=== PATIENT | female | born 1990 | race Caucasian/White ===

== ENCOUNTER 2018-01-25 22:16 | Emergency (ER) | payer MEDICARE, MEDICAID, SELFPAY ==
[2018-01-25 22:20] VITALS: BP 125/68; PULSE 104; RESP 18; TEMP 36.7; O2SAT 99; BMI 39.3
--- NOTE | 2018-01-25 22:27 | ED.LOWEXIN ---
HPI - Extremity Injury (Lower) General Chief Complaint: Extremity Injury, Lower Stated Complaint: LEFT KNEE PAIN NOT ABLE TO MOVE WELL Time Seen by Provider: 01/25/18 22:27 Source: patient Mode of arrival: ambulatory Limitations: no limitations History of Present Illness HPI Narrative: 27-year-old female here for evaluation of left posterior knee pain. No specific trauma. She states that is been worsening over the past 3 days. No chest pain or shortness of breath. She does state that she thinks it may be a little bit more swollen. She states that it hurts worse when she is sitting with her knees bent then strains her knees. Is able to walk. Related Data Home Medications Medication Instructions Recorded Confirmed aripiprazole [Abilify] 15 mg #0 04/21/16 01/08/18 Vitamin D3 Complete 01/25/18 ibuprofen [IBU] 600 mg PO PRN PRN 01/25/18 01/25/18 Previous Rx's Medication Instructions Recorded olanzapine [Zyprexa] 5 mg PO HS #1 tab 06/12/17 aripiprazole 5 mg tablet 5 mg PO DAILY #30 tab 01/08/18 olanzapine 5 mg disintegrating 5 mg PO DAILY #30 tab 01/08/18 tablet prazosin 1 mg capsule 1 mg PO BEDTIME #30 cap 01/08/18 Allergies Allergy/AdvReac Type Severity Reaction Status Date / Time Penicillins [PENICILLINS] Allergy Unknown THROAT Verified 01/25/18 22:20 SWELLING - HIVES amoxicillin Allergy Swelling Verified 01/25/18 22:20 of Lip/Tongue/Throat Review of Systems Constitutional Denies fever(s) Cardiovascular Denies chest pain and Denies dyspnea Respiratory Denies dyspnea Gastrointestinal Gastrointestinal: Denies abdominal pain Musculoskeletal Comments: Left knee pain Integumentary/Breasts Denies lesions and Denies rash Neurologic Comments: No numbness and tingling left lower extremity Hematologic/Lymphatic Denies easy bleeding and Denies easy bruising [facility] Medical History Bipolar disorder (Acute) Surgical History History of third molar tooth extraction Status post delivery (02/04/10) Status post delivery (03/30/11) Status post laparoscopic cholecystectomy Social History Smoking Status: Never smoker Exam Initial Vital Signs Initial Vital Signs: Vital Signs Temperature 98.1 F 01/25/18 22:20 Pulse Rate 104 H 01/25/18 22:20 Respiratory Rate 18 01/25/18 22:20 Blood Pressure 125/68 01/25/18 22:20 Pulse Oximetry 99 01/25/18 22:20 Const General: cooperative, healthy appearing, comfortable, well developed and well groomed Cardio Pulses: dorsalis pedis present bilaterally Skin Lesions: no lesions Rashes: no rashes Neuro Other: Sensation intact to light touch lower extremity Extrem Other: Patient left knee unremarkable except for tenderness to palpation along the semi tendinosis muscle body and tendon. No swelling. Psych Appearance: grossly normal and well kempt Course Vital Signs - 8 hr 01/25/18 22:20 Temperature 98.1 F Pulse Rate 104 H Respiratory Rate 18 Blood Pressure 125/68 Pulse Oximetry 99 MDM - Extremity Injury (Lower) MDM Narrative Medical decision making narrative: Patient with a relatively normal exam here in the emergency department. Is neurovascularly intact. Does have tenderness to palpation along the semi tendinosis tendon. Consider DVT however her exam was not consistent with this. I do think that it is muscular. Will hold on any radiologic studies for now. Discussed treatment with the patient. Patient expressed understanding and agreement with plan. Discharge Plan Departure Patient Disposition: Home Clinical Impression: Left hamstring muscle strain Instructions: DI for Hamstring Strain, How To Perform RICE (Rest, Ice, Compress, Elevate) Activity Restrictions/Additional Instructions: Call your primary care doctor for a follow-up. Return to the emergency department for any new or worsening symptoms Prescriptions: No Action aripiprazole 5 mg tablet 5 mg PO DAILY Qty: 30 RF: 0 olanzapine 5 mg tablet,disintegrating 5 mg PO DAILY Qty: 30 RF: 0 prazosin 1 mg capsule 1 mg PO BEDTIME Qty: 30 RF: 0 aripiprazole [Abilify] 15 MG tablet 15 mg Qty: 0 RF: 0 olanzapine [Zyprexa] 5 MG tablet 5 mg PO HS Qty: 1 RF: 0 Vitamin D3 Complete RF: 0 ibuprofen [IBU] 600 mg Tablet 600 mg PO PRN PRN (Reason: pain) RF: 0
--- NOTE | 2018-01-25 22:41 | PC.NURSE ---
Patient has pain on her posterior thigh running down her leg to her toes when she straightens her leg rapidly. States there was no injury, or activity that caused this pain. She states she has new brown spots on her foot and is not sure if that is related. She states her pain feels like her tendons are going to snap. Denies prolonged periods of standing, denies injury, and denies difficulty walking.
== END 2018-01-25 22:54 | disposition home or self-care (01) ==
PROVIDERS: Emergency Provider Emergency Medicine
DX: S76.312A Strain of muscle, fascia and tendon of the posterior muscle group at thigh level, left thigh, initial encounter (principal)
CPT/HCPCS: 99282

== ENCOUNTER 2018-02-14 08:36 | Emergency (ER) | payer MEDICARE, MEDICAID, SELFPAY ==
--- NOTE | 2018-02-14 08:58 | ED.FEMALEGU ---
HPI - Female Genitourinary General Chief complaint: Urogenital-Female Stated complaint: , cramping, possbilby 6 wks along Time Seen by Provider: 02/14/18 08:51 Source: patient Mode of arrival: ambulatory Limitations: no limitations History of Present Illness HPI Narrative: 27-year-old at 6 weeks presents with pelvic cramping over the course of the day. She denies any bleeding or discharge. She has had no care on this visit. She is not dizzy nor weak or lightheaded. She denies any fever or chills. MD Complaint: pelvic pain Onset (ago): hour(s) Location: suprapubic Severity: moderate Quality: Aching Duration: constant Relieving factors: none Exacerbating factors: none Patient : Yes Related Data : 3 Para: 2 Home Medications Medication Instructions Recorded Confirmed ibuprofen [IBU] 600 mg PO PRN PRN 01/25/18 02/14/18 magnesium 1 tab PO DAILY 02/14/18 02/14/18 olanzapine 5 mg PO DAILY PRN 02/14/18 02/14/18 Allergies Allergy/AdvReac Type Severity Reaction Status Date / Time Penicillins [PENICILLINS] Allergy Unknown THROAT Verified 01/25/18 22:20 SWELLING - HIVES amoxicillin Allergy Swelling Verified 01/25/18 22:20 of Lip/Tongue/Throat Review of Systems Review of Systems All systems reviewed & are unremarkable except as noted in HPI and below Constitutional Denies chills, Denies fever(s), Denies lethargy and Denies weakness Eyes Denies change in vision, Denies eye discharge, Denies irritation and Denies loss of vision ENT Ears, Nose, Mouth, and Throat: Denies change in voice, Denies neck pain and Denies sore throat Cardiovascular Denies chest pain, Denies irregular heart rhythm, Denies lightheadedness, Denies palpitations, Denies dyspnea, Denies dyspnea on exertion and Denies orthopnea Respiratory Denies cough, Denies dyspnea, Denies dyspnea on exertion and Denies wheezing Gastrointestinal Gastrointestinal: Reports abdominal pain, Denies change in bowel habits, Denies diarrhea, Denies nausea and Denies vomiting Genitourinary Denies hematuria, Denies flank pain, Denies urinary incontinence and Denies urinary urgency Musculoskeletal Denies neck pain Integumentary/Breasts Denies pruritus, Denies erythema, Denies rash and Denies wounds Neurologic Denies confusion, Denies loss of vision and Denies weakness Psychiatric Denies anxiety, Denies confusion, Denies depression, Denies homicidal ideation and Denies suicidal ideation Endocrine Denies palpitations Hematologic/Lymphatic Denies easy bruising Allergic/Immunologic Denies wheezing [facility] Social History Smoking Status: Never smoker Exam Narrative Exam Narrative: GENERAL: This is a well-nourished, well-developed patient, in mild distress. HEAD: Atraumatic. Normocephalic. No temporal or scalp tenderness. EYES: Pupils equal round and reactive. Extraocular motions intact. No scleral icterus. No injection or drainage. ENT: Nose without bleeding, purulent drainage or septal hematoma. Throat without erythema, tonsillar hypertrophy or exudate. Uvula midline. Airway patent. NECK: Trachea midline. No JVD or lymphadenopathy. Supple, nontender, no meningeal signs. CARDIOVASCULAR: Regular rate and rhythm without murmurs, gallops, or rubs. RESPIRATORY: Clear to auscultation. Breath sounds equal bilaterally. No wheezes, rales, or rhonchi. GASTROINTESTINAL: Abdomen soft, non-tender, nondistended. No hepato-splenomegaly, or palpable masses. No guarding. EXTREMITIES: No clubbing, cyanosis, or edema. No joint tenderness, effusion, or edema noted. BACK: Nontender without deformity or crepitance. No flank tenderness. NEURO: AOx3. SKIN: No rash or erythema. Initial Vital Signs Initial Vital Signs: Vital Signs Temperature 97.9 F 02/14/18 09:14 Pulse Rate 93 H 02/14/18 09:14 Respiratory Rate 20 02/14/18 09:14 Blood Pressure 160/92 H 02/14/18 09:14 Pulse Oximetry 98 02/14/18 09:14 MDM - Female Genitourinary Medical Records Attestation: I reviewed the patient's medical records. Lab Data Result diagrams: 02/14/18 10:18 02/14/18 10:18 Lab Results 02/14/18 02/14/18 Range/Units 10:18 10:18 WBC 12.1 H (4.5-11.0) X10^3/uL RBC 4.27 (4.0-5.2) X10^6/uL Hgb 12.9 (12.0-16.0) g/dL Hct 38.1 (36-46) % MCV 89.2 (80-100) fL MCH 30.3 (26-34) PG MCHC 34.0 (30-36) % RDW 11.9 (11.6-14.8) % Plt Count 272 (150-400) X10^3/uL Neut % (Auto) 70.7 (50-75) % Lymph % (Auto) 19.7 L (25-40) % [place] % (Auto) 6.6 (3-14) % Eos % (Auto) 1.8 L (2-4) % Baso % (Auto) 1.2 (0-2) % Neut # (Auto) 8600 H (3135-4695) /uL Sodium 140 (137-145) mmol/L Potassium 4.2 (3.4-5.1) mmol/L Chloride 103 (98-107) mmol/L Carbon Dioxide 28 (22-32) mmol/L BUN 6 L (7-17) mg/dL Creatinine 0.60 (0.52-1.04) mg/dL Estimated GFR > 60.0 (>60) mL/min BUN/Creatinine Ratio 10.0 (6-22) Glucose 88 (70-100) mg/dL Calcium 9.8 (8.4-10.2) mg/dL HCG, Quant 24159 mIU/mL Point of Care Testing Test Results Positive Urine Dip Bedside Urine Glucose Negative Bedside Urine Bilirubin - Negative Bedside Urine Ketone - Negative Urine Specific [place] 1.020 Bedside Urine Occult Blood - Negative Bedside Urine pH 6.0 Bedside Urine Protein - Negative Bedside Urine Urobilinogen - Negative Bedside Urine Nitrite - Negative Bedside Urine Leukocytes - Negative Esterase Imaging Data US - abdomen: Radiologist's impression: [address] [address] Ultrasound Report Signed Patient: Belkis Coello JMR#: [id number] : 1990Acct:[id number] Age/Sex: 27 / FDate of Service: 02/14/18 Loc: ED Accession Number: [id number] Procedure: US OB <= 14 weeks fetus Ordering Provider: Matt Vasquez D.O. PROCEDURE: US OB <= 14 WEEKS FETUS INDICATIONS: at 6weeks, pelvic pain OUTSIDE/PRIOR DATING DATA: Last menstrual period (LMP): 01/05/18. LMP-based estimated date of delivery (KENYA): 10/12/18. First dating scan (date and location): [facility], 02/14/18. Estimated date of delivery (KENYA) from first dating scan: 10/09/17. TECHNIQUE: Real-time scanning was performed of the fetus and maternal pelvic organs, with image documentation. Endovaginal scanning was also performed to better visualize the fetus and maternal ovaries. COMPARISON: None. FINDINGS: Embryo: A single live intrauterine is seen. The measured heart rate is 101 beats per minute. The crown-rump length measures 0.4 cm, corresponding to an estimated gestational age of 6 weeks 1 day. It is too early for detailed anatomic assessment. By visual inspection, the amount of amniotic fluid is within normal limits. There is a crescentic hypoechoic collection seen adjacent to the gestational sac that measures 14 x 6 x 14 mm. Measurement variability in dating: +/- 4 weeks by LMP, +/- 7 days by mean sac diameter (use before 6 weeks gestation if crown-rump length not able to be measured), +/- 5 days by crown-rump length (up to 8 weeks 6 days gestation), +/- 7 days by crown-rump length (up to 13 weeks 6 days gestation). Maternal organs: There is a presumed ruptured right corpus luteum. The left ovary is unremarkable. Limited images through the kidneys demonstrate no hydronephrosis. IMPRESSION: A single live intrauterine is seen. Mild subchorionic hemorrhage can be seen. No significant discrepancy is found between the estimated gestational age based on these images and the estimated gestational age based upon the given date of the last menstrual period. Presumed right ovarian ruptured corpus luteum. Dictated by: Ryan Rivera M.D. on 02/14/2018 at 9:47 Approved by: Ryan Rivera M.D. on 02/14/2018 at 9:49 Discharge Plan Departure Patient Disposition: Home Clinical Impression: Pelvic pain affecting Discharge Date/Time: 02/14/18 11:03 Interventions: ED Discharge Assessment Last Done: 02/14/18 11:03 Instructions: DI for Abdominal Pain -- Early Activity Restrictions/Additional Instructions: *You have been diagnosed with [ pelvic pain in ] *What to do: *Take medications as directed: vitamins *Follow up with OB provider in 2-3 days, call for an appointment. Let them know you were seen in the Emergency Department and that we ask that you be seen in follow up *Return to ER if you should have any new, worsening or concerning symptoms, such as [ increasing pain, fever over 101 F, bleeding or other bothersome symptoms] Prescriptions: No Action ibuprofen [IBU] 600 mg Tablet 600 mg PO PRN PRN (Reason: pain) RF: 0 magnesium 1 tab PO DAILY RF: 0 olanzapine 5 mg tablet,disintegrating 5 mg PO DAILY PRN (Reason: Anxiety) RF: 0 Referrals: Tiesha Colby MD [Physician] -
[2018-02-14 09:14] VITALS: BP 160/92; PULSE 93; RESP 20; TEMP 36.6; O2SAT 98
--- NOTE | 2018-02-14 09:30 | DI.US.S_ITS ---
PROCEDURE: US OB <= 14 WEEKS FETUS INDICATIONS: at 6weeks, pelvic pain OUTSIDE/PRIOR DATING DATA: Last menstrual period (LMP): 01/05/18. LMP-based estimated date of delivery (KENYA): 10/12/18. First dating scan (date and location): [facility], 02/14/18. Estimated date of delivery (KENYA) from first dating scan: 10/09/17. TECHNIQUE: Real-time scanning was performed of the fetus and maternal pelvic organs, with image documentation. Endovaginal scanning was also performed to better visualize the fetus and maternal ovaries. COMPARISON: None. FINDINGS: Embryo: A single live intrauterine is seen. The measured heart rate is 101 beats per minute. The crown-rump length measures 0.4 cm, corresponding to an estimated gestational age of 6 weeks 1 day. It is too early for detailed anatomic assessment. By visual inspection, the amount of amniotic fluid is within normal limits. There is a crescentic hypoechoic collection seen adjacent to the gestational sac that measures 14 x 6 x 14 mm. Measurement variability in dating: +/- 4 weeks by LMP, +/- 7 days by mean sac diameter (use before 6 weeks gestation if crown-rump length not able to be measured), +/- 5 days by crown-rump length (up to 8 weeks 6 days gestation), +/- 7 days by crown-rump length (up to 13 weeks 6 days gestation). Maternal organs: There is a presumed ruptured right corpus luteum. The left ovary is unremarkable. Limited images through the kidneys demonstrate no hydronephrosis. IMPRESSION: A single live intrauterine is seen. Mild subchorionic hemorrhage can be seen. No significant discrepancy is found between the estimated gestational age based on these images and the estimated gestational age based upon the given date of the last menstrual period. Presumed right ovarian ruptured corpus luteum. Dictated by: Ryan Rivera M.D. on 02/14/2018 at 9:47 Approved by: Ryan Rivera M.D. on 02/14/2018 at 9:49
[2018-02-14 10:24] LABS: Add Manual Diff / Slide Review NO; Basophils Percent Auto 1.2 % (0-2); Eosinophils Percent Auto 1.8 % (2-4); Hematocrit 38.1 % (36-46); Hemoglobin 12.9 g/dL (12.0-16.0); Lymphocytes Percent Auto 19.7 % (25-40); Mean Corpuscular Hemoglobin 30.3 PG (26-34); Mean Corpuscular Volume 89.2 fL (80-100); Monocytes Percent Auto 6.6 % (3-14); Neutrophils Absolute Auto 8600 /uL (3000-5900); Neutrophils Percent Auto 70.7 % (50-75); Platelet Count 272 X10^3/uL (150-400); Red Blood Cell Count 4.27 X10^6/uL (4.0-5.2); Red Cell Distribution Width 11.9 % (11.6-14.8); White Blood Cell Count 12.1 X10^3/uL (4.5-11.0)
[2018-02-14 10:32] VITALS: BP 124/68; PULSE 80; RESP 16; O2SAT 100
[2018-02-14 10:35] LABS: Blood Urea Nitrogen 6 mg/dL (7-17); Calcium 9.8 mg/dL (8.4-10.2); Carbon Dioxide 28 mmol/L (22-32); Chloride 103 mmol/L (98-107); Estimated Glomerular Filt Rate > 60.0 mL/min (>60); Glucose 88 mg/dL (70-100); HEMOLYSIS < 15 (0-50); Potassium 4.2 mmol/L (3.4-5.1); Sodium 140 mmol/L (137-145)
[2018-02-14 11:17] LABS: HCG Quantitative /Beta subunit 43147 mIU/mL
--- NOTE | 2018-02-14 20:03 | ED_ITS ---
HPI - Female Genitourinary General Chief complaint: Urogenital-Female Stated complaint: , cramping, possbilby 6 wks along Time Seen by Provider: 02/14/18 08:51 Source: patient Mode of arrival: ambulatory Limitations: no limitations History of Present Illness HPI Narrative: 27-year-old at 6 weeks presents with pelvic cramping over the course of the day. She denies any bleeding or discharge. She has had no care on this visit. She is not dizzy nor weak or lightheaded. She denies any fever or chills. MD Complaint: pelvic pain Onset (ago): hour(s) Location: suprapubic Severity: moderate Quality: Aching Duration: constant Relieving factors: none Exacerbating factors: none Patient : Yes Related Data : 3 Para: 2 Home Medications Medication Instructions Recorded Confirmed ibuprofen [IBU] 600 mg PO PRN PRN 01/25/18 02/14/18 magnesium 1 tab PO DAILY 02/14/18 02/14/18 olanzapine 5 mg PO DAILY PRN 02/14/18 02/14/18 Allergies Allergy/AdvReac Type Severity Reaction Status Date / Time Penicillins [PENICILLINS] Allergy Unknown THROAT Verified 01/25/18 22:20 SWELLING - HIVES amoxicillin Allergy Swelling Verified 01/25/18 22:20 of Lip/Tongue/Throat Review of Systems Review of Systems All systems reviewed & are unremarkable except as noted in HPI and below Constitutional Denies chills, Denies fever(s), Denies lethargy and Denies weakness Eyes Denies change in vision, Denies eye discharge, Denies irritation and Denies loss of vision ENT Ears, Nose, Mouth, and Throat: Denies change in voice, Denies neck pain and Denies sore throat Cardiovascular Denies chest pain, Denies irregular heart rhythm, Denies lightheadedness, Denies palpitations, Denies dyspnea, Denies dyspnea on exertion and Denies orthopnea Respiratory Denies cough, Denies dyspnea, Denies dyspnea on exertion and Denies wheezing Gastrointestinal Gastrointestinal: Reports abdominal pain, Denies change in bowel habits, Denies diarrhea, Denies nausea and Denies vomiting Genitourinary Denies hematuria, Denies flank pain, Denies urinary incontinence and Denies urinary urgency Musculoskeletal Denies neck pain Integumentary/Breasts Denies pruritus, Denies erythema, Denies rash and Denies wounds Neurologic Denies confusion, Denies loss of vision and Denies weakness Psychiatric Denies anxiety, Denies confusion, Denies depression, Denies homicidal ideation and Denies suicidal ideation Endocrine Denies palpitations Hematologic/Lymphatic Denies easy bruising Allergic/Immunologic Denies wheezing [facility] Social History Smoking Status: Never smoker Exam Narrative Exam Narrative: GENERAL: This is a well-nourished, well-developed patient, in mild distress. HEAD: Atraumatic. Normocephalic. No temporal or scalp tenderness. EYES: Pupils equal round and reactive. Extraocular motions intact. No scleral icterus. No injection or drainage. ENT: Nose without bleeding, purulent drainage or septal hematoma. Throat without erythema, tonsillar hypertrophy or exudate. Uvula midline. Airway patent. NECK: Trachea midline. No JVD or lymphadenopathy. Supple, nontender, no meningeal signs. CARDIOVASCULAR: Regular rate and rhythm without murmurs, gallops, or rubs. RESPIRATORY: Clear to auscultation. Breath sounds equal bilaterally. No wheezes , rales, or rhonchi. GASTROINTESTINAL: Abdomen soft, non-tender, nondistended. No hepato-splenomegaly , or palpable masses. No guarding. EXTREMITIES: No clubbing, cyanosis, or edema. No joint tenderness, effusion, or edema noted. BACK: Nontender without deformity or crepitance. No flank tenderness. NEURO: AOx3. SKIN: No rash or erythema. Initial Vital Signs Initial Vital Signs: Vital Signs Temperature 97.9 F 02/14/18 09:14 Pulse Rate 93 H 02/14/18 09:14 Respiratory Rate 20 02/14/18 09:14 Blood Pressure 160/92 H 02/14/18 09:14 Pulse Oximetry 98 02/14/18 09:14 MDM - Female Genitourinary Medical Records Attestation: I reviewed the patient's medical records. Lab Data Result diagrams: 02/14/18 10:18 02/14/18 10:18 Lab Results 02/14/18 02/14/18 Range/Units 10:18 10:18 WBC 12.1 H (4.5-11.0) X10^3/uL RBC 4.27 (4.0-5.2) X10^6/uL Hgb 12.9 (12.0-16.0) g/dL Hct 38.1 (36-46) % MCV 89.2 (80-100) fL MCH 30.3 (26-34) PG MCHC 34.0 (30-36) % RDW 11.9 (11.6-14.8) % Plt Count 272 (150-400) X10^3/uL Neut % (Auto) 70.7 (50-75) % Lymph % (Auto) 19.7 L (25-40) % [place] % (Auto) 6.6 (3-14) % Eos % (Auto) 1.8 L (2-4) % Baso % (Auto) 1.2 (0-2) % Neut # (Auto) 8600 H (1571-2121) /uL Sodium 140 (137-145) mmol/L Potassium 4.2 (3.4-5.1) mmol/L Chloride 103 (98-107) mmol/L Carbon Dioxide 28 (22-32) mmol/L BUN 6 L (7-17) mg/dL Creatinine 0.60 (0.52-1.04) mg/dL Estimated GFR > 60.0 (>60) mL/min BUN/Creatinine Ratio 10.0 (6-22) Glucose 88 (70-100) mg/dL Calcium 9.8 (8.4-10.2) mg/dL HCG, Quant 31603 mIU/mL Point of Care Testing Test Results Positive Urine Dip Bedside Urine Glucose Negative Bedside Urine Bilirubin - Negative Bedside Urine Ketone - Negative Urine Specific [place] 1.020 Bedside Urine Occult Blood - Negative Bedside Urine pH 6.0 Bedside Urine Protein - Negative Bedside Urine Urobilinogen - Negative Bedside Urine Nitrite - Negative Bedside Urine Leukocytes - Negative Esterase Imaging Data US - abdomen: Radiologist's impression: [address] [address] Ultrasound Report Signed Patient: Belkis Coello JMR#: [id number] : 1990Acct:[id number] Age/Sex: 27 / FDate of Service: 02/14/18 Loc: ED Accession Number: [id number] Procedure: US OB <= 14 weeks fetus Ordering Provider: Matt Vasquez D.O. PROCEDURE: US OB <= 14 WEEKS FETUS INDICATIONS: at 6weeks, pelvic pain OUTSIDE/PRIOR DATING DATA: Last menstrual period (LMP): 01/05/18. LMP-based estimated date of delivery (KENYA): 10/12/18. First dating scan (date and location): [facility], 02/14/18. Estimated date of delivery (KENYA) from first dating scan: 10/09/17. TECHNIQUE: Real-time scanning was performed of the fetus and maternal pelvic organs, with image documentation. Endovaginal scanning was also performed to better visualize the fetus and maternal ovaries. COMPARISON: None. FINDINGS: Embryo: A single live intrauterine is seen. The measured heart rate is 101 beats per minute. The crown-rump length measures 0.4 cm, corresponding to an estimated gestational age of 6 weeks 1 day. It is too early for detailed anatomic assessment. By visual inspection, the amount of amniotic fluid is within normal limits. There is a crescentic hypoechoic collection seen adjacent to the gestational sac that measures 14 x 6 x 14 mm. Measurement variability in dating: +/- 4 weeks by LMP, +/- 7 days by mean sac diameter (use before 6 weeks gestation if crown-rump length not able to be measured), +/ - 5 days by crown-rump length (up to 8 weeks 6 days gestation), +/- 7 days by crown-rump length (up to 13 weeks 6 days gestation). Maternal organs: There is a presumed ruptured right corpus luteum. The left ovary is unremarkable. Limited images through the kidneys demonstrate no hydronephrosis. IMPRESSION: A single live intrauterine is seen. Mild subchorionic hemorrhage can be seen. No significant discrepancy is found between the estimated gestational age based on these images and the estimated gestational age based upon the given date of the last menstrual period. Presumed right ovarian ruptured corpus luteum. Dictated by: Ryan Rivera M.D. on 02/14/2018 at 9:47 Approved by: Ryan Rivera M.D. on 02/14/2018 at 9:49 Discharge Plan Departure Patient Disposition: Home Clinical Impression: Pelvic pain affecting Discharge Date/Time: 02/14/18 11:03 Interventions: ED Discharge Assessment Last Done: 02/14/18 11:03 Instructions: DI for Abdominal Pain -- Early Activity Restrictions/Additional Instructions: *You have been diagnosed with [ pelvic pain in ] *What to do: *Take medications as directed: vitamins *Follow up with OB provider in 2-3 days, call for an appointment. Let them know you were seen in the Emergency Department and that we ask that you be seen in follow up *Return to ER if you should have any new, worsening or concerning symptoms , such as [ increasing pain, fever over 101 F, bleeding or other bothersome symptoms] Prescriptions: No Action ibuprofen [IBU] 600 mg Tablet 600 mg PO PRN PRN (Reason: pain) RF: 0 magnesium 1 tab PO DAILY RF: 0 olanzapine 5 mg tablet,disintegrating 5 mg PO DAILY PRN (Reason: Anxiety) RF: 0 Referrals: Tiesha Colby MD [Physician] -
== END 2018-02-14 11:03 | disposition home or self-care (01) ==
PROVIDERS: Emergency Provider Emergency Medicine
DX: O26.891 Other specified pregnancy related conditions, first trimester (principal); R10.2 Pelvic and perineal pain; Z3A.01 Less than 8 weeks gestation of pregnancy
CPT/HCPCS: 36415; 76801; 76817; 80048; 81003; 81025; 84702; 85025; 99282; 99284

== ENCOUNTER → 2018-03-15 13:33 | Outpatient (CLI) | payer MEDICARE, MEDICAID, SELFPAY ==
[2018-03-15 14:10] LABS: Appearance Urine UA CLEAR; Bilirubin Urine UA NEGATIVE (NEGATIVE); Color Urine UA YELLOW; Glucose Urine UA NEGATIVE (Normal); Ketones Urine UA TRACE (NEGATIVE); Leukocyte Esterase Urine UA NEGATIVE (NEGATIVE); Nitrite Urine UA NEGATIVE (Negative); Occult Blood Urine UA TRACE-INTACT (Negative); Protein Urine UA TRACE (Negative); Specific Gravity Urine UA >=1.030 (1.000-1.035); Urobilinogen Urine UA 0.2 E.U./dL (0.2)
[2018-03-15 14:17] LABS: Urine Amphetamines Negative (Negative); Urine Barbiturates Negative (Negative); Urine Benzodiazepines Negative (Negative); Urine Cocaine Negative (Negative); Urine MDMA Negative (Negative); Urine Methadone Negative (Negative); Urine Methamphetamines Negative (Negative); Urine Morphine/Opi cutoff 2000 Negative (Negative); Urine Oxycodone Negative (Negative); Urine Phencyclidine Negative (Negative); Urine Tetrahydrocannabinol Positive (Negative); Urine Tricyclic Antidepressant Negative (Negative)
[2018-03-15 14:17] LABS: Add Manual Diff / Slide Review NO; Basophils Percent Auto 0.6 % (0-2); Eosinophils Percent Auto 0.8 % (2-4); Hematocrit 34.7 % (36-46); Lymphocytes Percent Auto 16.4 % (25-40); Mean Corpuscular HGB Conc 34.5 % (30-36); Mean Corpuscular Hemoglobin 30.3 PG (26-34); Mean Corpuscular Volume 87.8 fL (80-100); Monocytes Percent Auto 6.1 % (3-14); Neutrophils Absolute Auto 9300 /uL (3000-5900); Neutrophils Percent Auto 76.1 % (50-75); Platelet Count 332 X10^3/uL (150-400); Red Blood Cell Count 3.95 X10^6/uL (4.0-5.2); Red Cell Distribution Width 11.9 % (11.6-14.8); White Blood Cell Count 12.2 X10^3/uL (4.5-11.0)
[2018-03-15 15:43] LABS: Hepatitis B Surface Antigen NEGATIVE s/c (NEGATIVE); Rubella Antibody IgG 45.8 IU/mL (>15)
[2018-03-15 15:53] LABS: HIV 1 and 2 Antibody NEGATIVE (NEGATIVE); Hep C Virus Ab w/Reflex Quant NEGATIVE s/c (NEGATIVE)
[2018-03-18 07:03] LABS: RPR Screen Nonreactive (Nonreactive)
[2018-03-20 09:59] LABS: HSV 2 IGG AB 9.25 index (< 0.90); HSV1IGG < 0.90 index (< 0.90)
== END ==
PROVIDERS: Visit Provider Obstetrics & Gynecology
DX: Z34.81 Encounter for supervision of other normal pregnancy, first trimester (principal); Z87.898 Personal history of other specified conditions
CPT/HCPCS: 36415; 80055; 80305; 81003; 85025; 86592; 86695; 86696; 86703; 86762; 86787; 86803; 86850; 86900; 86901; 87086; 87340

== ENCOUNTER 2018-04-17 21:47 | Emergency (ER) | payer MEDICARE, MEDICAID, SELFPAY ==
--- NOTE | 2018-04-17 21:54 | ED.GENADULT ---
HPI - General Adult General Chief complaint: Vaginal Bleeding Stated complaint: Vaginal Bleeding Time Seen by Provider: 04/17/18 21:51 Source: patient Mode of arrival: ambulatory Limitations: no limitations History of Present Illness HPI narrative: patient is a 28-year-old female with blood type O-positive who [facility] She states that she was instrumented at that time. She also received the Depo shot at that time. She states that since the procedure she has had vaginal bleeding. She was told that she was going to have bleeding so she did not think much of it. She states that over the past several days the bleeding has worsened to the point to where she had a by larger pads and changing multiple pads a day. Does have some lower abdominal pain. No fevers. Related Data Home Medications Medication Instructions Recorded Confirmed ibuprofen [IBU] 600 mg PO PRN PRN 01/25/18 02/14/18 magnesium 1 tab PO DAILY 02/14/18 02/14/18 olanzapine 5 mg PO DAILY PRN 02/14/18 02/14/18 acetaminophen 325 mg tablet 650 mg PO Q6H PRN 03/15/18 03/15/18 Previous Rx's Medication Instructions Recorded sertraline 25 mg tablet 25 mg PO DAILY #30 tab 03/05/18 1 tab PO DAILY #30 tab 03/15/18 vitamin,calcium,gwzavdiv-vwfm-cenhf acid tablet fluconazole 150 mg tablet 150 mg PO ONCE #1 tab 03/22/18 Allergies Allergy/AdvReac Type Severity Reaction Status Date / Time Penicillins [PENICILLINS] Allergy Unknown THROAT Verified 04/17/18 21:56 SWELLING - HIVES amoxicillin Allergy Swelling Verified 04/17/18 21:56 of Lip/Tongue/Throat Review of Systems Constitutional Denies fever(s) and Denies headache(s) ENT Ears, Nose, Mouth, and Throat: Denies headache(s) Cardiovascular Denies chest pain and Denies dyspnea Respiratory Denies dyspnea Gastrointestinal Gastrointestinal: Reports abdominal pain, Denies nausea and Denies vomiting Genitourinary Denies dysuria and Reports vaginal discharge Musculoskeletal Denies myalgias and Denies arthralgias Integumentary/Breasts Denies rash Neurologic Denies headache(s) Hematologic/Lymphatic Denies easy bleeding and Denies easy bruising [facility] Social History Smoking Status: Never smoker Exam Initial Vital Signs Initial Vital Signs: Vital Signs Temperature 98.3 F 04/17/18 21:57 Pulse Rate 110 H 04/17/18 21:57 Respiratory Rate 15 04/17/18 21:57 Blood Pressure 153/118 H 04/17/18 21:57 Pulse Oximetry 98 04/17/18 21:57 Const General: cooperative, healthy appearing, comfortable, well developed, well groomed and No acute distress Orientation: alert, awake and oriented x3 HENMT Head: normal to inspection and normocephalic Resp Effort & Inspection: normal respiratory effort Auscultation: clear to auscultation bilaterally Cardio Rate: tachycardic Rhythm: regular rhythm GI Inspection: non-distended Palpation: soft, No firm, No guarding, No rigid and tender ( Some tenderness to palpation lower abdomen) Skin Lesions: no lesions Rashes: no rashes Neuro General: alert, awake and oriented x3 Cognition: normal cognition Speech: speech normal Extrem General: normal to inspection and capillary refill normal Psych Appearance: grossly normal and well kempt Course Orders Ordered: ED Orders 04/17/18 22:01 Basic Metabolic Panel Stat Complete Blood Count AUTO DIFF Stat HCG Quantitative Stat 04/17/18 22:10 US pelvic complete Stat Medroxyprogesterone Acetate (Provera) 10 mg PO DAILY PATRICK Vital Signs - 8 hr 04/17/18 21:57 Temperature 98.3 F Pulse Rate 110 H Respiratory Rate 15 Blood Pressure 153/118 H Pulse Oximetry 98 Medical Decision Making Lab Data Lab results reviewed: Yes I reviewed the patient's lab results. Result diagrams: 04/17/18 22:01 04/17/18 22:01 Lab Results 04/17/18 04/17/18 04/17/18 Range/Units 22:01 22:01 22:01 WBC 11.6 H (4.5-11.0) X10^3/uL RBC 4.33 (4.0-5.2) X10^6/uL Hgb 12.8 (12.0-16.0) g/dL Hct 39.0 (36-46) % MCV 90.2 (80-100) fL MCH 29.6 (26-34) PG MCHC 32.8 (30-36) % RDW 12.2 (11.6-14.8) % Plt Count 296 (150-400) X10^3/uL Neut % (Auto) 70.0 (50-75) % Lymph % (Auto) 22.3 L (25-40) % [place] % (Auto) 6.6 (3-14) % Eos % (Auto) 0.4 L (2-4) % Baso % (Auto) 0.7 (0-2) % Neut # (Auto) 8100 H (3995-7674) /uL Sodium (137-145) mmol/L Potassium (3.4-5.1) mmol/L Chloride (98-107) mmol/L Carbon Dioxide (22-32) mmol/L BUN (7-17) mg/dL Creatinine (0.52-1.04) mg/dL Estimated GFR (>60) mL/min BUN/Creatinine Ratio (6-22) Glucose (70-100) mg/dL Calcium (8.4-10.2) mg/dL HCG, Quant 55.51 mIU/mL Blood Type Cancelled 04/17/18 Range/Units 22:01 WBC (4.5-11.0) X10^3/uL RBC (4.0-5.2) X10^6/uL Hgb (12.0-16.0) g/dL Hct (36-46) % MCV (80-100) fL MCH (26-34) PG MCHC (30-36) % RDW (11.6-14.8) % Plt Count (150-400) X10^3/uL Neut % (Auto) (50-75) % Lymph % (Auto) (25-40) % [place] % (Auto) (3-14) % Eos % (Auto) (2-4) % Baso % (Auto) (0-2) % Neut # (Auto) (0176-1389) /uL Sodium 141 (137-145) mmol/L Potassium 3.7 (3.4-5.1) mmol/L Chloride 106 (98-107) mmol/L Carbon Dioxide 23 (22-32) mmol/L BUN 9 (7-17) mg/dL Creatinine 0.70 (0.52-1.04) mg/dL Estimated GFR > 60.0 (>60) mL/min BUN/Creatinine Ratio 12.9 (6-22) Glucose 98 (70-100) mg/dL Calcium 9.6 (8.4-10.2) mg/dL HCG, Quant mIU/mL Blood Type Imaging Data US - abdomen: Radiologist's impression: pelvic ultrasound Abnormally thickened and heterogeneous endometrium, most of which is avascular indicating clot, but a small focus of Doppler flow was noted within the thickened endometrium, suspicious for retained products of conception MDM Narrative Medical decision making narrative: patient does not have signs of an infection Which could be concerning for endometritis. Her hemoglobin and hematocrit her the same today as from approximately 2 months ago. I suspect that the tachycardia is related to the discomfort that she is in. The ultrasound does show concerns for retained products of conception. I discussed the case with Dr. Woods who recommended giving the patient Provera and giving the patient her office phone number so that she could follow up with her tomorrow. I discussed all this with the patient. I did discuss the ultrasound results with her. She was given follow-up information and return precautions. She expressed understanding and agreement with plan. Discharge Plan Departure Patient Disposition: Home Clinical Impression: Abnormal uterine bleeding Instructions: Therapeutic : Surgical, DI for Abnormal Uterine Bleeding Activity Restrictions/Additional Instructions: I discussed your case today with Dr. Woods. She would like you to call the [facility] at [phone] tomorrow morning. Tell them that you were seen in the emergency department this evening and that your case was discussed with Dr. Woods who wanted you to call for a follow-up. If her symptoms worsen or you develop new symptoms return to the emergency department. Prescriptions: No Action sertraline [Zoloft] 25 mg tablet 25 mg PO DAILY Qty: 30 RF: 6 prenat.vits,octavia,wdk-vswd-acshy tablet 1 tab PO DAILY Qty: 30 RF: 5 fluconazole [Diflucan] 150 mg tablet 150 mg PO ONCE Qty: 1 RF: 0 acetaminophen [Tylenol] 325 mg tablet 650 mg PO Q6H PRNRF: 0 ibuprofen [IBU] 600 mg Tablet 600 mg PO PRN PRN (Reason: pain) RF: 0 magnesium 1 tab PO DAILY RF: 0 olanzapine 5 mg tablet,disintegrating 5 mg PO DAILY PRN (Reason: Anxiety) RF: 0
[2018-04-17 21:57] VITALS: BP 153/118; PULSE 110; RESP 15; TEMP 36.8; O2SAT 98; BMI 40.7
--- NOTE | 2018-04-17 22:10 | DI.US.S_ITS ---
PROCEDURE: US PELVIC COMPLETE INDICATIONS: HEAVY BLEEDING 3 WEEKS POST ELECTIVE TECHNIQUE: Real-time scanning was performed of the pelvic organs, with image documentation. Additional endovaginal scanning was necessary due to incomplete visualization of the adnexal and endometrial structures by transabdominal scanning. COMPARISON: None. FINDINGS: Transabdominal scanning: Limited scanning through the kidneys shows no hydronephrosis. No pathologic free abdominal or pelvic fluid. Endovaginal scanning: Uterus: Uterus measures 2.5 x 5.9 x 7.8 cm. Endometrial complex is thickened to 41.8 mm. Color Doppler evaluation demonstrates absence of the vascularity in the thickened endometrium, however there is a small focus of Doppler flow identified in the inferior margin of the thickened endometrium (series 1, image 14). cm. Ovaries: Adnexa is not visualized and cannot be evaluated. No gross sonographic abnormalities identified in the expected region of the adnexa. IMPRESSION: 1. Abnormal thickening and heterogeneity of the endometrium. The majority of the thickened endometrium is avascular compatible with clot, however a small focus of vascularity is noted in inferior margin of the thickened endometrium which is concerning for retained products of conception. 2. Adnexa are not visualized. Dictated by: Aline Weston MD, PhD on 04/18/2018 at 9:16 Approved by: Aline Weston MD, PhD on 04/18/2018 at 9:59
--- NOTE | 2018-04-17 22:45 | PC.NURSE ---
Addendum entered by Shivani Dunne R.N. 04/17/18 22:50: Pt report Original Note: Pt had an 3 weeks ago. About 1 week pt started bleeding increasing in amount since yesterday. States passed a large clot about the size of her hand. Reports having gone through 2 pads in the past hour.
[2018-04-17 22:53] LABS: HCG Quantitative /Beta subunit 55.51 mIU/mL
[2018-04-17 22:58] LABS: Add Manual Diff / Slide Review NO; BUN Creatinine Ratio 12.9 (6-22); Basophils Percent Auto 0.7 % (0-2); Blood Urea Nitrogen 9 mg/dL (7-17); Calcium 9.6 mg/dL (8.4-10.2); Carbon Dioxide 23 mmol/L (22-32); Chloride 106 mmol/L (98-107); Eosinophils Percent Auto 0.4 % (2-4); Estimated Glomerular Filt Rate > 60.0 mL/min (>60); Glucose 98 mg/dL (70-100); HEMOLYSIS < 15 (0-50); Hemoglobin 12.8 g/dL (12.0-16.0); Lymphocytes Percent Auto 22.3 % (25-40); Mean Corpuscular HGB Conc 32.8 % (30-36); Mean Corpuscular Hemoglobin 29.6 PG (26-34); Mean Corpuscular Volume 90.2 fL (80-100); Monocytes Percent Auto 6.6 % (3-14); Neutrophils Absolute Auto 8100 /uL (3000-5900); Platelet Count 296 X10^3/uL (150-400); Potassium 3.7 mmol/L (3.4-5.1); Red Blood Cell Count 4.33 X10^6/uL (4.0-5.2); Red Cell Distribution Width 12.2 % (11.6-14.8); Sodium 141 mmol/L (137-145); White Blood Cell Count 11.6 X10^3/uL (4.5-11.0)
--- NOTE | 2018-04-17 23:35 | PC.NURSE ---
Sent order to coordinator for meds for pt.
[2018-04-18 00:01] VITALS: BP 133/91; PULSE 95; TEMP 36.4; O2SAT 100
--- NOTE | 2018-04-18 00:02 | PC.NURSE ---
Called 2nd time for meds for pt to d/c to home
[2018-04-18] MEDS: MEDROXYPROGESTERONE ACETATE 10 MG TABLET PO (00:09)
== END 2018-04-18 00:16 | disposition home or self-care (01) ==
PROVIDERS: Emergency Provider Emergency Medicine
DX: N93.9 Abnormal uterine and vaginal bleeding, unspecified (principal)
CPT/HCPCS: 36415; 76830; 76856; 80048; 84702; 85025; 99282; 99284

== ENCOUNTER 2018-04-18 04:20 | Observation (INO) | payer MEDICARE, MEDICAID, SELFPAY ==
[2018-04-18] VITALS (12 sets, daily range): BP systolic 104–140; BP diastolic 45–89; PULSE 68–126; RESP 12–20; TEMP 36.3–37.1; O2SAT 93–100; BMI 40.6
--- NOTE | 2018-04-18 | PATH_ITS ---
[facility] Accession Number: [id number] . 01 Material submitted: . RETAINED PRODUCTS OF CONCEPTION . 02 Diagnosis: Retained Products of Conception: Partially necrotic immature placental tissue, decidual tissue and fragments of endometrium. [facility]/04/22/2018 . 02 Electronically signed: . Ruben Hernandez MD, Pathologist NPI- [id number] . 01 Gross description: . Received in formalin labeled, products of conception, are multiple fragments of red-brown spongy tissue (15.0 x 3.5 x 3.0 cm in aggregate). No tissue is identified. [facility] tissue is submitted in cassettes A1-A4. ([id number]) /[facility] . 02 Pathologist provided ICD-10: O02.1 . 02 CPT . 880075 Performed at: 01 [facility] [address] [id number] MD Jeses Singh MD Phone: [phone] Performed at: 02 [facility] [address] [place] [id number] MD Na Guzmán MD Phone: [phone]
--- NOTE | 2018-04-18 04:23 | ED_ITS ---
HPI - General Adult General Chief complaint: Vaginal Bleeding Stated complaint: large blood clots lots of bleeding post Time Seen by Provider: 04/18/18 04:21 Source: patient Mode of arrival: ambulatory Limitations: no limitations History of Present Illness HPI narrative: 28-year-old female who I evaluated here in the emergency department last evening 3 weeks after having a elective . She was having bleeding at that time. Was given 10 mg of medroxyprogesterone by mouth here in the emergency department prior to discharge. She was also given follow- up instructions for Dr. Woods who I consulted during her last stay. She returns again this morning for continued and worsening bleeding. She states that since she left the emergency department her symptoms have certainly not improved in have actually worsened. No abdominal pain but states that she has passed several very large clots. Related Data Home Medications Medication Instructions Recorded Confirmed ibuprofen [IBU] 600 mg PO PRN PRN 01/25/18 02/14/18 magnesium 1 tab PO DAILY 02/14/18 02/14/18 olanzapine 5 mg PO DAILY PRN 02/14/18 02/14/18 acetaminophen 325 mg tablet 650 mg PO Q6H PRN 03/15/18 03/15/18 medroxyprogesterone 10 mg DAILY 04/18/18 04/18/18 Previous Rx's Medication Instructions Recorded sertraline 25 mg tablet 25 mg PO DAILY #30 tab 03/05/18 1 tab PO DAILY #30 tab 03/15/18 vitamin,calcium,nbmenmso-cukp-cnjzs acid tablet fluconazole 150 mg tablet 150 mg PO ONCE #1 tab 03/22/18 Allergies Allergy/AdvReac Type Severity Reaction Status Date / Time Penicillins [PENICILLINS] Allergy Unknown THROAT Verified 04/17/18 21:56 SWELLING - HIVES amoxicillin Allergy Swelling Verified 04/17/18 21:56 of Lip/Tongue/Throat Review of Systems Cardiovascular Denies chest pain and Denies dyspnea Respiratory Denies dyspnea Gastrointestinal Gastrointestinal: Reports abdominal pain ( Abdominal pain is not worse from the visit last evening) and Reports cramping Genitourinary Denies dysuria and Reports vaginal discharge Musculoskeletal Denies myalgias and Denies arthralgias Integumentary/Breasts Denies rash Neurologic Denies behavioral changes Psychiatric Denies behavioral changes Hematologic/Lymphatic Comments: not on anticoagulation PFSH Social History Smoking Status: Never smoker Exam Initial Vital Signs Initial Vital Signs: Vital Signs Temperature 97.4 F L 04/18/18 04:27 Pulse Rate 126 H 04/18/18 04:27 Respiratory Rate 20 04/18/18 04:27 Blood Pressure 133/89 04/18/18 04:27 Pulse Oximetry 98 04/18/18 04:27 Const General: cooperative, comfortable, well developed, well groomed and No acute distress Orientation: alert, awake and oriented x3 HENMT Head: normal to inspection and normocephalic Resp Effort & Inspection: normal respiratory effort Auscultation: clear to auscultation bilaterally Cardio Rate: tachycardic Rhythm: regular rhythm Pulses: radial pulses present GI Inspection: non-distended Palpation: soft Skin Rashes: no rashes Neuro General: alert, awake and oriented x3 Extrem General: normal to inspection and capillary refill normal Psych Appearance: grossly normal and well kempt Course Orders Ordered: ED Orders 04/18/18 04:42 Hemoglobin and Hematocrit Stat Type and Screen Stat Sodium Chloride (Normal Saline 0.9%) 1,000 mls @ 125 mls/hr IV CONT PATRICK Last Admin: 04/18/18 05:01 Dose: 125 mls/hr Vital Signs - 8 hr 04/18/18 04:27 04/18/18 05:13 Temperature 97.4 F L Pulse Rate 126 H 100 H Respiratory Rate 20 18 Blood Pressure 133/89 Blood Pressure [Right Arm] 124/64 Pulse Oximetry 98 100 Medical Decision Making Lab Data Lab results reviewed: Yes I reviewed the patient's lab results. Result diagrams: 04/18/18 04:42 Lab Results 04/18/18 04/18/18 Range/Units 04:42 04:42 Hgb 12.5 (12.0-16.0) g/dL Hct 37.2 (36-46) % Blood Type O Positive Antibody Screen Negative MDM Narrative Medical decision making narrative: patient's hemoglobin and hematocrit are unchanged from the visit several hours ago. The these are also unchanged from a prior H&H several months ago. Patient is more tachycardic upon arrival. Is not hypotensive. I do not feel the need to repeat a ultrasound or chemistries. I discussed the case again with Dr. Woods who will evaluate the patient here in the emergency department. Patient was informed that Dr. Woods to come see her here in the ER. patient was evaluated by Dr. Woods. Will admit the patient for D&C. Discharge Plan Departure Patient Disposition: Admitted as Observation Clinical Impression: Vaginal bleeding
[2018-04-18 04:59] LABS: Hematocrit 37.2 % (36-46); Hemoglobin 12.5 g/dL (12.0-16.0)
[2018-04-18] MEDS: SODIUM CHLORIDE 0.9% 1,000 ML 125 ML IV (05:01)
--- NOTE | 2018-04-18 05:02 | PC.NURSE ---
I entered room after another RN began IV. Pt is diaphoretic, decreased B/P to 83/42, and Pt not talking to me much. Repositioned pt in trendellenberg position, applied ice to neck, and towel placed on forehead. Began IV fluids and BP went back up to 124/64. Pt states she is feeling a little better and responding appropriately to questions.
--- NOTE | 2018-04-18 06:41 | PM.GYNHP.1 ---
History of Present Illness Reason for admission: incomplete Narrative: Belkis Coello is a 28 year old female who had a D and C for termination at 12 weeks on March 28. She had continues episodes of gushing of bright red blood since the procedure. The bleeding became heavier with passing of clots and continuous so she presented to the emergency room. [facility] Social History Smoking Status: Never smoker Meds Home Medications Medication Instructions Recorded Confirmed Type ibuprofen [IBU] 600 mg PO PRN PRN 01/25/18 04/18/18 History olanzapine 5 mg PO DAILY PRN 02/14/18 04/18/18 History acetaminophen 325 mg tablet 650 mg PO Q6H PRN 03/15/18 04/18/18 History medroxyprogesterone 10 mg DAILY 04/18/18 04/18/18 History medroxyprogesterone [Depo-Provera] 150 mg IM 04/18/18 History Allergies Allergy/AdvReac Type Severity Reaction Status Date / Time Penicillins [PENICILLINS] Allergy Unknown THROAT Verified 04/17/18 21:56 SWELLING - HIVES amoxicillin Allergy Swelling Verified 04/17/18 21:56 of Lip/Tongue/Throat Review of Systems Review of Systems Patient complains of some intermittent cramping and left lower quadrant pain with passing of blood clots. No fevers. All systems reviewed & are unremarkable except as noted in HPI and below Exam Vital Signs (past 8 hours): - 04/18/18 04:27 04/18/18 05:13 04/18/18 06:19 Temperature 97.4 F L Pulse Rate 126 H 100 H 103 H Respiratory Rate 20 18 18 Blood Pressure 133/89 114/60 Blood Pressure [Right Arm] 124/64 Pulse Oximetry 98 100 100 Oxygen Delivery Method Room Air Narrative Exam Narrative: HEENT exam within normal limits. Lungs are clear to auscultation and percussion. Heart is regular rate and rhythm no S3-S4 or murmurs. Abdomen is soft, nontender with no palpable organomegaly. Pelvic exam was not repeated. Extremities without edema and nontender. Objective Imaging US - abdomen: Radiologist's impression: Retained products of conception on ultrasound Labs Result Diagrams: 04/18/18 04:42 Labs: Laboratory Results - last 24 hr 04/18/18 04/18/18 04:42 04:42 Hgb 12.5 Hct 37.2 Blood Type O Positive Antibody Screen Negative Assessment & Plan (1) Incomplete miscarriage with blood clot: Current visit: Yes Status: Acute Plan: Assessment/Plan Narrative: Patient was given options of waiting to see if she passes the retained products of conception, proceeding with D and C, medical therapy with methotrexate and Cytotec. Patient opted for D&C. Risks of scar tissue, damage to internal structures if perforation, infection, continued bleeding. Consent form was signed, questions answered.
[2018-04-18] MEDS: LACTATED RINGERS 1,000 ML 100 ML IV ×2 (09:19→15:09)
--- NOTE | 2018-04-18 13:19 | PC.NURSE ---
Patient maintaining NPO for procedure today, anticipated at about 13-1400. Patient up to void without difficulty, scant vaginal bleeding (no clots noted) on pad. Patient appears comfortable, without complaints. Friends and family have been in and out to visit. VSS. Awaiting pickle processor for surgery.
--- NOTE | 2018-04-18 14:38 | PC.NURSE ---
Patient picked up for surgery at this time.
--- NOTE | 2018-04-18 14:49 | CM.IDA ---
Discharge Planning/Care Management CM Discharge Assessment Start: 04/18/18 14:29 Freq: Status: Active Protocol: Document 04/18/18 14:29 ELIO (Rec: 04/18/18 14:48 ELIO [id number]) Discharge Planning Assessment Assigned Leasing Assistant Jennifer Jarrett, BAKER HELPER DPOA/Assigned Designee Name Carolina Marie, family Contact Information [phone] Advance Directives? No History Provided By Patient Prior Living Arrangements Apartment/Condo Independent with ADL's Yes Is patient alert and oriented? Yes Comment Pt requires further assessment from this BAKER HELPER. Pt off the floor for D&C surgery today. PMH includes Bipolar disorder, PTSD, anxiety and ADHD. Family Practice Visit note ( [facility]) dated 01/08/18 indicates pt does not have a PCP and has not made it into [facility] for management of her psych meds/ counseling, d/t her work schedule. Following closely. Discharge Plan Home Transportation Arrangement Likely friends or family Additional Comment Possible need for referral pending further assessment. Review Status In Process
--- NOTE | 2018-04-18 15:24 | PM.PREOP ---
Pre-operative Note Interval Note Pre-op Check: Yes History & Physical exam performed today by Physician Changes: No
[2018-04-18] MEDS: CLINDAMYCIN 900 MG/50 ML PIGGYBACK 50 MG IV (15:32)
--- NOTE | 2018-04-18 15:39 | SUR.OPER ---
Lithotomy on padded OR bed, head on pillow, arms secured on padded arm boards at <90 degrees abduction. Legs secured in padded yellow fins stirrups.
--- NOTE | 2018-04-18 16:01 | P.OP_ITS ---
Operative Date/Time/Diagnoses Date of procedure: 04/18/18 Time of procedure: 16:01 Pre-op diagnosis: retained products of conception Post-op diagnosis: same Procedure & Clinicians Procedure: Suction D&C Same procedure as scheduled: Yes Indications: Retained products of conception after 12 week termination Surgeon: Priya Woods Click Yes if Unassisted: Yes Anesthesia Type: General Operative Notes Findings: Moderate amount of retained tissue Closure Type: not applicable Specimen(s): other (Products of conception) Estimated Blood Loss (mL): 25 Blood products transfused: none Procedure in detail: Patient was brought to the operating room where she underwent general anesthesia. Pulsatile stockings were in place and functional. Warming was in place. Clindamycin was in prior to beginning of the case. A check system was reviewed with the staff in the room. She was prepped and draped in usual sterile fashion. Her bladder was drained with an in -and out catheter. A single-tooth tenaculum was placed on the anterior lip of the cervix and the cervix was dilated to 8. Hegar dilator. The uterus was sounded. The 7 suction curette was placed into the uterus and old blood and tissue removed. Sharp curette was performed. Suction curette was replaced with removal of further tissue. There was not significant bleeding at the end of the case. Patient went to recovery room in good condition. Counts of instruments and sponges were correct. Complications: none Condition: stable Disposition: same day surgery Plan for aftercare: Home when awake and stable follow-up in 2 weeks
--- NOTE | 2018-04-18 18:15 | PC.NURSE ---
1730- Discharge instruction given patient verbalizes understanding. IV dc'd. Patient stable at the time of discharge.
== END 2018-04-18 17:30 | disposition home or self-care (01) ==
LOC: ED 04:56 → AC 06:07
PROVIDERS: Admitting Provider Specialist; Emergency Provider Emergency Medicine; Visit Provider Specialist
PROC: 0UDB8ZZ Extraction of Endometrium, Via Natural or Artificial Opening Endoscopic (ICD-10-PCS; CPT 58558; principal; 2018-04-18 13:45)
DX: O03.1 Delayed or excessive hemorrhage following incomplete spontaneous abortion (principal)
CPT/HCPCS: 59812; 36591; 85014; 85018; 86850; 86900; 86901; 88305; 96360; 99283; 99284; G0378; J1100; J2405; J2704; J3010

== ENCOUNTER → 2018-10-22 12:18 | Outpatient (CLI) | payer MEDICARE, MEDICAID, SELFPAY ==
[2018-04-18 06:48] VITALS: BMI 40.6
[2018-10-22 14:14] LABS: HCG Quantitative /Beta subunit < 2.39 mIU/mL
== END ==
PROVIDERS: Visit Provider Obstetrics & Gynecology
DX: N91.2 Amenorrhea, unspecified (principal)
CPT/HCPCS: 36415; 84702

== ENCOUNTER → 2019-02-10 16:25 | Outpatient (CLI) | payer MEDICARE, MEDICAID, SELFPAY ==
[2018-04-18 06:48] VITALS: BMI 40.6
[2019-02-10 17:52] LABS: Cholesterol 149 mg/dL (140-199); HDL Cholesterol 58 mg/dL (40-60); LDL Cholesterol Calculated 81 mg/dL (<100); Triglycerides 52 mg/dL (35-150)
[2019-02-10 18:09] LABS: Vitamin D 25 Hydroxy (D3) 24.7 ng/mL (30.0-100.0)
[2019-02-10 18:10] LABS: Hemoglobin A1C% w Est Avg Glu 4.8 % (4.0-6.0)
== END ==
PROVIDERS: PCP Student in an Organized Health Care Education/Training Program; Visit Provider Student in an Organized Health Care Education/Training Program
DX: E66.01 Morbid (severe) obesity due to excess calories (principal); R73.9 Hyperglycemia, unspecified; Z13.220 Encounter for screening for lipoid disorders; E55.9 Vitamin D deficiency, unspecified
CPT/HCPCS: 36415; 80061; 82306; 83036

== ENCOUNTER → 2019-03-11 11:33 | Outpatient (CLI) | payer MEDICARE, MEDICAID, SELFPAY ==
[2018-04-18 06:48] VITALS: BMI 40.6
[2019-03-11 12:51] LABS: HCG Quantitative /Beta subunit 172.53 mIU/mL
== END ==
PROVIDERS: PCP Student in an Organized Health Care Education/Training Program; Visit Provider Obstetrics & Gynecology
DX: N91.2 Amenorrhea, unspecified (principal)
CPT/HCPCS: 36415; 84702

== ENCOUNTER → 2019-03-13 08:03 | Outpatient (CLI) | payer MEDICARE, MEDICAID, SELFPAY ==
[2018-04-18 06:48] VITALS: BMI 40.6
[2019-03-13 09:41] LABS: HCG Quantitative /Beta subunit 422.13 mIU/mL
== END ==
PROVIDERS: PCP Student in an Organized Health Care Education/Training Program; Visit Provider Obstetrics & Gynecology
DX: N91.2 Amenorrhea, unspecified (principal)
CPT/HCPCS: 36415; 84702

== ENCOUNTER → 2019-04-24 15:10 | Outpatient (CLI) | payer MEDICARE, MEDICAID, SELFPAY ==
[2018-04-18 06:48] VITALS: BMI 40.6
[2019-04-24 15:58] LABS: Add Manual Diff / Slide Review NO; Basophils Absolute Auto 100 /uL (0-100); Basophils Percent Auto 0.7 % (0-2); Eosinophils Absolute Auto 200 /uL (0-450); Eosinophils Percent Auto 1.8 % (2-4); Hematocrit 37.9 % (36-46); Hemoglobin 13.2 g/dL (12.0-16.0); Lymphocytes Absolute Auto 1900 /uL (1100-4500); Lymphocytes Percent Auto 16.7 % (25-40); Mean Corpuscular HGB Conc 34.7 % (30-36); Mean Corpuscular Hemoglobin 30.9 PG (26-34); Mean Corpuscular Volume 88.8 fL (80-100); Monocytes Absolute Auto 600 /uL (0-900); Monocytes Percent Auto 5.3 % (3-14); Neutrophils Absolute Auto 8800 /uL (1500-7000); Neutrophils Percent Auto 75.5 % (50-75); Platelet Count 326 X10^3/uL (150-400); Red Blood Cell Count 4.26 X10^6/uL (4.0-5.2); Red Cell Distribution Width 12.2 % (11.6-14.8); White Blood Cell Count 11.6 X10^3/uL (4.5-11.0)
[2019-04-24 17:42] LABS: Hepatitis B Surface Antigen NEGATIVE s/c (NEGATIVE); Rubella Antibody IgG 51.4 IU/mL (>15)
[2019-04-24 17:51] LABS: HIV 1 & 2 Ab/Ag 4th Gen Combo NEGATIVE (NEGATIVE); Hep C Virus Ab w/Reflex Quant NEGATIVE s/c (NEGATIVE)
[2019-04-27 20:01] LABS: RPR Screen Nonreactive (Nonreactive)
== END ==
PROVIDERS: PCP Student in an Organized Health Care Education/Training Program; Visit Provider Obstetrics & Gynecology
DX: Z34.81 Encounter for supervision of other normal pregnancy, first trimester (principal)
CPT/HCPCS: 36415; 80055; 86787; 86803; 86850; 86900; 86901; 87389

== ENCOUNTER → 2019-06-25 16:45 | Outpatient (CLI) | payer MEDICARE, OTHER, MEDICAID, SELFPAY ==
[2018-04-18 06:48] VITALS: BMI 40.6
[2019-06-28 21:00] LABS: AFP, Serum 37.6 ng/mL; Brief History NTD NG; Calc Gestational Age 19.6; Cigarette Smoker N; Donated Egg NO; Donor Egg Age NOT GIVEN; Estriol, Free 1.43 ng/mL; Inhibin A, Dimeric 91 pg/mL; Inhibin A, MoM 0.64; Maternal Weight 260 lbs; Number of Fetuses 1; Previous Pregnancy Down Syndro NO; hCG, MoM 1.55; hCG, Serum 23.3 IU/mL
== END ==
PROVIDERS: PCP Student in an Organized Health Care Education/Training Program; Referring Provider Specialist; Visit Provider Specialist
DX: Z34.82 Encounter for supervision of other normal pregnancy, second trimester (principal); Z3A.19 19 weeks gestation of pregnancy
CPT/HCPCS: 36415; 82105; 82677; 84702; 86336

== ENCOUNTER → 2019-06-30 07:58 | Outpatient (CLI) | payer MEDICARE, MEDICAID, SELFPAY ==
[2018-04-18 06:48] VITALS: BMI 40.6
--- NOTE | 2019-06-30 08:00 | DI.US.S_ITS ---
PROCEDURE: US OB >= 14 WEEKS FETUS INDICATIONS: ANATOMY OUTSIDE/PRIOR DATING DATA: Last menstrual period (LMP): 02/08/19. LMP-based estimated date of delivery (KENYA): 11/15/19. First dating scan (date and location): 06/30/19. Estimated date of delivery (KENYA) from first dating scan: 11/13/19. TECHNIQUE: Real-time scanning was performed of the fetus, with image documentation and biometric measurements. COMPARISON: [facility], , OB >= 14 WEEKS FETUS, 06/25/2019, 16:17. FINDINGS: General: A single living intrauterine gestation is present. Presentation: Vertex. Placenta: Placental position is posterior, without previa. Amniotic fluid index: 12.9 cm, normal range is 5-24 cm. heart rate: 141 beats per minute. Maternal cervical canal: 3.2 cm long. Normal lower limit is 2.5 cm biometrics: Biparietal diameter: 20 weeks 0 days Head circumference: 20 weeks 3 days Abdominal circumference: 21 weeks 1 day Femur length: 20 weeks 6 days Estimated gestational age from initial scan: not applicable. Composite gestational age from present scan: 20 weeks 4 days Estimated weight and percentile: 36 g; 80 percentile Measurement variability for biometric dating: +/- 7 days from 14 weeks to 15 weeks 6 days gestation, +/- 10 days from 16 weeks to 21 weeks 6 days gestation, +/- 2 weeks from 22 weeks to 27 weeks 6 days gestation, +/- 3 weeks for 28 weeks gestation or later. weight reference: 4500 g or EFW >90/95% is considered macrosomia or large for gestational age. EFW <10% is small for gestational age. EFW 5% or less is considered intra-uterine growth restriction. Anatomic survey: Neuro: Ventricles are non-dilated at less than 10 mm. Cisterna magna is normal at 3-11 mm. Cerebellum is normal in size and morphology. Nuchal skin fold: Normal at less than 6 mm between 14-21 weeks gestational age. Face: Nose and lips, facial profile are normal. Spine: No evidence for spina bifida. Heart: Suboptimally visualized. Diaphragm: Diaphragm is intact. Stomach: Left-sided stomach is present. Kidneys: No hydronephrosis. Normal is less than 5 mm in 2nd trimester, less than 7 mm in 3rd trimester. Cord: 3-vessel cord has orthotopic insertion. Bladder: Normal in size. Extremities: All 4 extremities identified. IMPRESSION: 1. Single living IUP redemonstrated and interval growth is normal. 2. heart suboptimally visualized; otherwise normal anatomy. Followup recommended. Dictated by: Christiano Alberts [facility] Interpreted: Kelly Lynn MD on 06/30/2019 at 9:28 Approved by: Kelly Lynn M.D. on 06/30/2019 at 17:11
== END ==
PROVIDERS: PCP Student in an Organized Health Care Education/Training Program; Referring Provider Specialist; Visit Provider Specialist
DX: Z34.82 Encounter for supervision of other normal pregnancy, second trimester (principal); Z3A.20 20 weeks gestation of pregnancy
CPT/HCPCS: 76811

== ENCOUNTER → 2019-07-28 11:58 | Outpatient (CLI) | payer MEDICARE, MEDICAID, SELFPAY ==
[2018-04-18 06:48] VITALS: BMI 40.6
--- NOTE | 2019-07-28 11:59 | DI.US.S_ITS ---
PROCEDURE: US OB FOLLOW UP INDICATIONS: RE-EVALUATE HEART OUTSIDE/PRIOR DATING DATA: Last menstrual period (LMP): 02/08/19. LMP-based estimated date of delivery (KENYA): 11/15/19. First dating scan (date and location): 06/30/19. Estimated date of delivery (KENYA) from first dating scan: 11/13/19. TECHNIQUE: Real-time scanning was performed of the fetus, with image documentation. Endovaginal scanning: Not performed COMPARISON: [facility], US OB >= 14 WEEKS FETUS, 06/30/2019, 8:12. [facility], US OB >= 14 WEEKS FETUS, 06/25/2019, 16:17. FINDINGS: A single living intrauterine gestation is present. Presentation: breech. Placenta: Placental position is posterior, without previa. Amniotic fluid index: 13.1 cm, normal range is 5-24 cm. heart rate: 141 beats per minute. Maternal cervical canal: 4.6 cm long. Normal lower limit is 2.5 cm. Estimated gestational age from initial scan: 24 weeks 4 days. Normal appearance of the heart. This completes the anatomic survey IMPRESSION: Single living intrauterine fetus in breech presentation. Normal appearance of the heart. Dictated by: Shravan Martell M.D. on 07/28/2019 at 16:03 Approved by: Shravan Martell M.D. on 07/28/2019 at 16:05
== END ==
PROVIDERS: PCP Student in an Organized Health Care Education/Training Program; Referring Provider Student in an Organized Health Care Education/Training Program; Visit Provider Obstetrics & Gynecology
DX: Z36.2 Encounter for other antenatal screening follow-up (principal); Z3A.24 24 weeks gestation of pregnancy
CPT/HCPCS: 76816

== ENCOUNTER → 2019-08-19 11:58 | Outpatient (CLI) | payer MEDICARE, MEDICAID, SELFPAY ==
[2019-07-29 08:35] VITALS: BMI 40.6
[2019-08-19 14:32] LABS: Hematocrit 35.8 % (36-46)
[2019-08-19 14:56] LABS: GTT (PREG) 1 Hour PP 50gm Dose 124 mg/dL (76-139)
== END ==
PROVIDERS: PCP Student in an Organized Health Care Education/Training Program; Referring Provider Specialist; Visit Provider Specialist
DX: Z34.82 Encounter for supervision of other normal pregnancy, second trimester (principal); Z3A.23 23 weeks gestation of pregnancy
CPT/HCPCS: 36415; 82950; 85014; 85018

== ENCOUNTER → 2019-10-22 11:42 | Outpatient (CLI) | payer MEDICARE, MEDICAID, SELFPAY ==
[2019-07-29 08:35] VITALS: BMI 40.6
[2019-10-23 12:33] LABS: Strep Grp B PCR NEG for Grp B Strep
== END ==
PROVIDERS: PCP Student in an Organized Health Care Education/Training Program; Visit Provider Specialist
DX: Z34.83 Encounter for supervision of other normal pregnancy, third trimester (principal); Z3A.36 36 weeks gestation of pregnancy
CPT/HCPCS: 87653

== ENCOUNTER → 2019-11-04 14:15 | Outpatient (CLI) | payer MEDICARE, MEDICAID, SELFPAY ==
[2019-07-29 08:35] VITALS: BMI 40.6
[2019-11-05 22:50] LABS: COVID19 Sendout Not Detected (Not Detect)
== END ==
PROVIDERS: PCP Student in an Organized Health Care Education/Training Program; Visit Provider Physician Assistant
DX: Z01.812 Encounter for preprocedural laboratory examination (principal)
CPT/HCPCS: 87635

== ENCOUNTER 2019-11-07 07:12 | Inpatient (IN) | payer MEDICARE, MEDICAID, SELFPAY ==
[2019-07-29 08:35] VITALS: BMI 40.6
--- NOTE | 2019-11-07 | PATH_ITS ---
[facility] Accession Number: [id number] . 01 Material submitted: . fallopian tube - SEGMENT OF FALLOPIAN TUBES BILATERAL . 02 Diagnosis: Segments of Fallopian Tubes Bilateral: Complete cross-sections of segments of fallopian tube x2. V 11/10/2019 0927 Local . 02 Electronically signed: . Ida English MD, Pathologist NPI- [id number] . 01 Gross description: . Specimen A is received in formalin, labeled with patient identification and segment bilateral fallopian tubes. It consists of two undesignated, nonfimbriated fallopian tube segments measuring 1.5 and 1.9 cm in length and 0.5 cm in diameter each. The serosae are yellow-gonzáles, smooth and dull. Sectioning reveals pinpoint patent lumina which are lined by yellow-gonzáles and grossly unremarkable mucosa. The wall thickness is 0.1 cm. The entire specimen is submitted in two cassettes. . Summary of sections: A1: Entire cross-sections of shorter fallopian tube, five pieces. A2: The entire sections of longer fallopian tube, six pieces. ([id number]) /MRV 11/09/2019 0258 Local . 02 Pathologist provided ICD-10: Z30.2 . 02 CPT . 444541 Performed at: 01 [facility] [address], [place], [place] [id number] MD Jesse Sinhg MD Phone: [phone] Performed at: 02 [facility] [place] [address] [place], [place] [id number] MD Na Guzmán MD Phone: [phone]
--- NOTE | 2019-11-07 07:45 | SUR.OPER ---
Supine on Padded OR bed, head on pillow, safety belt at thigh, arms secured on padded arm boards at <90 degrees abduction. Bump under right buttock. Legs uncrossed with pillow under knees, gel pad to heels, tape over blanket to lower legs.
[2019-11-07] MEDS: GENTAMICIN 440 MG in SODIUM CHLORIDE 0.9% 100 ML 111 ML IV (08:03)
[2019-11-07] MEDS: CLINDAMYCIN 900 MG/50 ML PIGGYBACK 50 MG IV (08:06)
[2019-11-07] MEDS: ACETAMINOPHEN IV 1,000 MG/100 ML VIAL 400 MG IV (08:25)
--- NOTE | 2019-11-07 08:37 | SUR.OPER ---
VIABLE FEMALE INFANT DELIVERED AT 0829. CORD BLOOD AND PLACENTA TO OB WITH RN.
[2019-11-07 09:10] VITALS: BP 114/51; PULSE 79; RESP 10; TEMP 36.1; O2SAT 98
[2019-11-07 09:15] VITALS: BP 104/51; PULSE 85; RESP 10; O2SAT 97
--- NOTE | 2019-11-07 09:16 | PM.OP.1 ---
Operative Date/Time/Diagnoses Date of procedure: 11/07/19 Time of procedure: 09:16 Pre-op diagnosis: 39 week gestation with prior section wish for sterilization Post-op diagnosis: same Procedure & Clinicians Procedure: Repeat low-transverse section with bilateral tubal ligation Same procedure as scheduled: Yes Indications: 2 prior sections at 39 weeks with wish for sterilization Surgeon: Priya Woods Stocking Inspector: Donny Hernandez Yes if Unassisted: No Anesthesia Type: Spinal Operative Notes Findings: The normal tubes, ovaries, uterus, adhesions of the omentum to the anterior abdominal wall, viable female weighing 7 lb 3 oz, 3250 g, with Apgars of 8 and 9 Closure Type: primary Specimen(s): other (Bilateral tubal sections) Applied: catheter (Valerio) Estimated Blood Loss (mL): 200 Blood products transfused: none Procedure in detail: The patient was brought to the operating room where she underwent a spinal for anesthesia. She was placed in a supine position with a left lateral tilt. A Valerio catheter was placed. Pulsatile stockings were placed and functional throughout the case. 900 mg of clindamycin and 440 mg of gentamicin were given IV prior to the incision. Warming was in place. The patient was prepped and draped in usual sterile fashion. A low transverse incision was made with a scalpel through the prior incision and the incision was carried down to the fascial layer which was incised transversely with scissors. The midline attachments are superiorly and inferiorly. Some bleeding was controlled Bovie. The rectus muscles were in the midline and the peritoneal incision was made with no damage to internal structures. The peritoneum was incised and superiorly and inferiorly. Bladder blade was placed and a bladder flap was developed and the bladder held away from the lower uterine segment. An incision was made in the uterus with the scalpel and the incision was extended with stretching. The head was elevated out of the abdomen and with fundal pressure the baby was delivered. The infant was bulb suctioned for clear fluid and handed off to the warmer. Cord blood was collected. The placenta delivered spontaneously with traction. The uterus was cleaned with clean laps. The uterine incision was closed in 2 layers of 0 chromic suture the first a running locking layer the second an imbricating layer. The bladder peritoneum was repaired with 2-0 Vicryl suture. The gutters were cleaned of any remaining fluids and ovaries and tubes were observed to be normal. A segment of the right fallopian tube was grasped with the Reyes and tied off x2 with 0 chromic suture. The intervening section was removed with scissors and adequate hemostasis was noted. The same procedure was performed on the left side. Adequate hemostasis was noted. The perineum was closed with 2-0 Vicryl suture. The fascia layer was closed with 0 Vicryl suture with 2 stitches. The incision was irrigated and adequate hemostasis noted. The incision was closed with interrupted 3-0 Vicryl sutures and then a subcuticular stitch of 4-0 Vicryl suture. Steri-Strips were placed. The uterus was massaged to remove any clots. The patient went to recovery room in good condition. Counts of instruments and sponges were correct. Complications: none Post-operative Condition: stable Disposition: other ( Center) Plan for aftercare: Routine post section care
[2019-11-07 09:20] VITALS: BP 112/63; PULSE 76; RESP 20; O2SAT 94
[2019-11-07 09:35] VITALS: BP 126/65; PULSE 77; RESP 18; O2SAT 95
[2019-11-07] MEDS: LACTATED RINGERS 1,000 ML 100 ML IV ×2 (13:00→23:10)
[2019-11-07] MEDS: KETOROLAC 30 MG/ML VIAL IV ×2 (15:36→21:35)
[2019-11-07 15:44] VITALS: BP 134/70
[2019-11-07] MEDS: OXYCODONE IR 10 MG TABLET PO ×2 (18:42→23:09)
[2019-11-08 02:20] VITALS: BP 133/77; PULSE 83; RESP 18; TEMP 36.8
[2019-11-08] MEDS: IBUPROFEN 600 MG TABLET PO ×2 (03:45→10:14)
[2019-11-08] MEDS: OXYCODONE IR 10 MG TABLET PO ×3 (06:02→14:59)
[2019-11-08 06:55] LABS: Add Manual Diff / Slide Review NO; Basophils Absolute Auto 100 /uL (0-100); Basophils Percent Auto 0.7 % (0-2); Eosinophils Absolute Auto 300 /uL (0-450); Eosinophils Percent Auto 2.4 % (2-4); Hematocrit 29.6 % (36-46); Hemoglobin 10.2 g/dL (12.0-16.0); Lymphocytes Absolute Auto 1800 /uL (1100-4500); Lymphocytes Percent Auto 15.3 % (25-40); Mean Corpuscular HGB Conc 34.4 % (30-36); Mean Corpuscular Volume 89.9 fL (80-100); Monocytes Absolute Auto 800 /uL (0-900); Monocytes Percent Auto 6.6 % (3-14); Neutrophils Absolute Auto 8900 /uL (1500-7000); Platelet Count 234 X10^3/uL (150-400); Red Cell Distribution Width 13.1 % (11.6-14.8); White Blood Cell Count 11.8 X10^3/uL (4.5-11.0)
--- NOTE | 2019-11-08 10:10 | PM.OBDS.1 ---
Discharge Providers Provider Date of admission: 11/07/19 07:12 Discharge Date: 11/08/19 Primary care physician: Aime Lubin MD Consults: 11/07/19 10:17 Consult to Fashion Director Party Plan Sales Routine Comment: Discharge provider: Priya Woods MD Summary Hospital Course Date Patient Seen: 11/08/19 Time Patient Seen: 10:11 Procedures: Repeat low-transverse section with bilateral tubal ligation Hospital Course: Patient was admitted for repeat section at 39 weeks with 2 prior C-sections and desire for sterilization. She underwent a repeat low-transverse section with bilateral tubal ligation on 11/07/2019. By postoperative day 1 she was ambulatory although feeling somewhat lightheaded from her anemia. She was passing gas. Her pain is under control. Her bleeding is appropriate. She denies any headaches, scotomata, epigastric pain. No nausea. Peripartum Data Infant Delivery Method: Section (Repeat low-transverse ) Procedures: Repeat low-transverse section with bilateral tubal ligation complications: other (Some lightheadedness from anemia) 1: Gender: Female Disposition of : home Discharge Diagnosis (1) Delivery by section using transverse incision of lower segment of uterus: Status: Acute (2) Acute blood loss anemia: Status: Acute (3) Sterilization: Status: Acute Status at Discharge Cognitive/behavioral status at discharge: oriented Functional status at discharge: independent ambulation Overall status at discharge: patient is progressing back to baseline Time Spent with Patient Time attestation: Total time spent providing and/or coordinating discharge services: Time spent: Less than 30 minutes Objective Labs Result Diagrams: 11/08/19 06:45 Labs: Laboratory Results - last 24 hr 11/08/19 06:45 WBC 11.8 H RBC 3.30 L Hgb 10.2 L Hct 29.6 L MCV 89.9 MCH 31.0 MCHC 34.4 RDW 13.1 Plt Count 234 Neut % (Auto) 75.0 Lymph % (Auto) 15.3 L [place] % (Auto) 6.6 Eos % (Auto) 2.4 Baso % (Auto) 0.7 Neut # (Auto) 8900 H Lymph # (Auto) 1800 [place] # (Auto) 800 Eos # (Auto) 300 Baso # (Auto) 100 Exam Vital Signs (past 8 hours): Blood pressure 99/60, pulse 74, temperature 97.8? Oxygen Delivery Method Room Air Narrative Exam Narrative: Abdomen is soft, nontender. Uterus is firm, at U, appropriately tender. Dressing is clean, dry, intact. Mild lochia. Extremities with +1 edema and nontender. Patient's blood type is O positive, she is rubella immune, she received Tdap in the 3rd trimester. Discharge Plan Discharge Plan Patient Disposition: Home Discharge orders & Medications Prescriptions: New ibuprofen 600 mg Tablet 600 mg PO Q6HR PRN (Reason: Fever/Mild Pain (1-3)) Qty: 30 RF: 0 docusate sodium 250 mg Capsule 250 mg PO DAILY Qty: 20 RF: 0 ferrous gluconate 324 mg (38 mg iron) Tablet 324 mg PO DAILY Qty: 30 RF: 0 oxycodone 10 mg Tablet 10 mg PO Q4HR PRN (Reason: Pain, Severe (7-10)) Qty: 30 RF: 0 Continued prenat.vits,octavia,vgz-lcsd-dbrng Tablet 1 tab PO DAILY Qty: 90 RF: 3 Follow up/Referrals: Aime Lubin MD [Primary Care Provider] - Priya Woods MD [Physician] - 1 Week (Aquacel removal) Diet/Activity/Treatments Diet: Regular Activity: Nothing in vagina and do not lift over 20 lb for 6 week Skin/Wound/Dressing Care Report to your healthcare provider any signs of infection, such as:: chills, fever, increased pain and unusual redness Dressing: Leave dressing on until postop appointment Discharge Data Primary Care Provider: Aime Lubin
[2019-11-08 10:14] VITALS: TEMP 36.7
[2019-11-08] MEDS: FERROUS GLUCONATE 324 MG TABLET PO (10:14)
[2019-11-08] MEDS: DOCUSATE 250 MG CAPSULE PO (10:14)
== END 2019-11-08 15:10 | disposition home or self-care (01) | DRG 784 ==
LOC: AC 09:03 → LABOR 09:31
PROVIDERS: Admitting Provider Specialist; PCP Student in an Organized Health Care Education/Training Program; Referring Provider Student in an Organized Health Care Education/Training Program; Visit Provider Specialist
PROC: 10D00Z1 Extraction of Products of Conception, Low, Open Approach (ICD-10-PCS; CPT 59514; principal; 2019-11-07 07:45)
DX: O34.211 Maternal care for low transverse scar from previous cesarean delivery (principal); D62 Acute posthemorrhagic anemia; Z3A.39 39 weeks gestation of pregnancy; Z37.0 Single live birth; Z30.2 Encounter for sterilization; D64.9 Anemia, unspecified
CPT/HCPCS: 36415; 58611; 59050; 59510; 59514; 85025; 86850; 86900; 86901; 87635; J0131; J0171; J1885; J2274; J2405

== ENCOUNTER 2019-11-07 07:12 | Inpatient (IN) | payer MEDICARE, MEDICAID, SELFPAY ==
[2019-07-29 08:35] VITALS: BMI 40.6
--- NOTE | 2019-11-07 07:25 | PM.PREOP ---
Pre-operative Note COVID-19 COVID-19 status: Negative Result date/Date tested (Pos, Neg/Pending): 11/04/19 Interval Note History & Physical reviewed/Exam performed by Physician: Yes Changes to H&P: No
--- NOTE | 2019-11-07 07:29 | P.HPOB_ITS ---
OB HPI Date/Time Date of admission: 11/07/19 Date Patient Seen: 11/07/19 Time Patient Seen: 07:29 History of Present Condition Chief complaint: CHILDBIRTH : 4 Para: 2 Estimated Date of Delivery: 11/14/19 Estimated Gestational Age (weeks): 39 Narrative: Belkis Coello is a 29 year old female admitted at 39 weeks for repeat section and bilateral tubal ligation Indications Operative indications ( section): previous uterine surgery (2 prior sections) History of Present care: good care, initiated at week # (10), number of visits (10) and pounds weight gain (47) Dating criteria: LMP confirmed by 1st trimester US Ultrasounds: normal mid trimester US Obstetrical complications: none Medical complications: none Preadmission Labs Blood type: O (+) positive -: Antibody screen: negative, GBS status: negative, HBsAG: negative, HIV: negative, HSV 1: negative, HSV 2: positive and RPR/VDLR: negative -: Chlamydia screen: not detected and Gonorrhea screen: not detected -: Rubella: immune and Varicella: immune HCAB: negative Quad screen: Normal 1 hr GTT: 124 Evaluation Evaluation Baseline heart rate: 140 Variability: Moderate (11-25) monitor accelerations: Present monitor decelerations: Absent Contraction Frequency (minutes): 0 Category of Tracing: I PFSH Medical History (Updated 04/24/19 @ 14:01 by Janice Driver RN) ADHD (Chronic ~2007) Anxiety (Chronic ~2007) Bipolar disorder (Chronic ~2007) Cervical cancer (Chronic ~2008) 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) Depression (Chronic ~2007) Developmental delay, mild (Chronic ~1994) GERD (gastroesophageal reflux disease) (Chronic ~2008) Oral cancer (Chronic ~2008) PTSD (post-traumatic stress disorder) (Chronic ~2013) Surgical History (Updated 12/13/18 @ 13:25 by Catrina Galicia) History of third molar tooth extraction (Resolved) Status post delivery (Resolved 02/04/10) Status post delivery (Resolved 03/30/11) Status post D&C (Resolved ~2017) Status post laparoscopic cholecystectomy (Resolved ~2011) Family History (Updated 12/13/18 @ 13:27 by Catrina Galicia) Father Colon cancer Congestive heart failure Mental health problem Heart disease Mother Mental health problem Brother Mental health problem Brother Mental health problem Grandmother No problems noted. Social History marital status: unmarried,living together household members: children pets and animals: Yes (Diesel) education level: high school occupational status: disabled current occupational exposures/hazards: Yes (lead paint) Smoking Status: Former smoker alcohol intake: never substance use type: marijuana Meds Home Medications and Allergies Home Medications Medication Instructions Recorded Confirmed Type prenat.vits,octavia,dek-ozdy-gbimt 1 tab PO DAILY #90 tab 06/03/19 11/05/19 Rx Allergies Allergy/AdvReac Type Severity Reaction Status Date / Time Penicillins [PENICILLINS] Allergy Unknown THROAT Verified 07/23/19 12:05 SWELLING - HIVES amoxicillin Allergy Swelling Verified 07/23/19 12:05 of Lip/Tongue/Throat adhesives Allergy Intermediate Hives Uncoded 07/23/19 12:05 Review of Systems Review of Systems Narrative: Patient denies any rupture membranes, contractions, headaches, scotomata, epigastric pain. ROS: Yes All systems reviewed with the patient and are negative except as otherwise documented Exam Vital Signs (past 8 hours): Blood pressure 119/66, pulse of 100, temperature 97.5? Narrative Exam Narrative: HEENT exam within normal limits. Lungs are clear to auscultati on percussion. Heart is regular rate and rhythm no S3-S4 or murmurs. Abdomen is gravid. Extremities without edema and nontender. Assessment and Plan Assessment and Plan Assessment and Plan narrative: 39 week gestation with 2 prior sections and desire for sterilization for repeat low-transverse section and bilateral tubal ligation. Time Spent with Patient Total time spent with greater than 50% in coordination of care (as documented) at patient's floor/unit and/or counseling patient:: less than 15 minutes
[2019-11-07 07:52] LABS: Add Manual Diff / Slide Review NO; Basophils Absolute Auto 100 /uL (0-100); Basophils Percent Auto 0.6 % (0-2); Eosinophils Absolute Auto 200 /uL (0-450); Eosinophils Percent Auto 1.5 % (2-4); Hemoglobin 11.6 g/dL (12.0-16.0); Lymphocytes Absolute Auto 2200 /uL (1100-4500); Lymphocytes Percent Auto 19.2 % (25-40); Mean Corpuscular HGB Conc 34.2 % (30-36); Mean Corpuscular Hemoglobin 30.6 PG (26-34); Mean Corpuscular Volume 89.2 fL (80-100); Monocytes Absolute Auto 700 /uL (0-900); Monocytes Percent Auto 6.3 % (3-14); Neutrophils Absolute Auto 8300 /uL (1500-7000); Neutrophils Percent Auto 72.4 % (50-75); Platelet Count 306 X10^3/uL (150-400); Red Blood Cell Count 3.81 X10^6/uL (4.0-5.2); Red Cell Distribution Width 13.3 % (11.6-14.8); White Blood Cell Count 11.4 X10^3/uL (4.5-11.0)
[2019-11-07] MEDS: CITRIC ACID/SODIUM CITRATE 15 ML SOLUTION 30 ML PO (07:56)
[2019-11-07] MEDS: LACTATED RINGERS 1,000 ML 1000 ML IV (07:57)
== END 2019-11-07 11:43 | disposition home or self-care (01) | DRG 951 ==
PROVIDERS: Admitting Provider Specialist; PCP Student in an Organized Health Care Education/Training Program; Referring Provider Specialist; Visit Provider Specialist
DX: Z3A.39 39 weeks gestation of pregnancy (principal)
CPT/HCPCS: 85025; 86850; 86900; 86901

== ENCOUNTER 2020-01-24 21:05 | Emergency (ER) | payer MEDICARE, MEDICAID, SELFPAY ==
[2019-07-29 08:35] VITALS: BMI 40.6
[2020-01-24] VITALS (7 sets, daily range): BP systolic 110–128; BP diastolic 63–70; PULSE 106–126; RESP 20–35; TEMP 36.9; O2SAT 95–99; BMI 47.0
[2020-01-24] MEDS: ONDANSETRON 4 MG/2 ML INJ IV (21:30)
[2020-01-24] MEDS: SODIUM CHLORIDE 0.9% 1,000 ML 1000 ML IV ×2 (21:31→22:09)
[2020-01-24 21:40] LABS: Add Manual Diff / Slide Review NO; Basophils Absolute Auto 100 /uL (0-100); Basophils Percent Auto 0.4 % (0-2); Eosinophils Absolute Auto 200 /uL (0-450); Hematocrit 36.7 % (36-46); Hemoglobin 12.2 g/dL (12.0-16.0); Lactate (Lactic Acid) 2.4 mmol/L (0.7-2.1); Lymphocytes Absolute Auto 900 /uL (1100-4500); Lymphocytes Percent Auto 5.3 % (25-40); Mean Corpuscular HGB Conc 33.2 % (30-36); Mean Corpuscular Hemoglobin 28.4 PG (26-34); Mean Corpuscular Volume 85.7 fL (80-100); Monocytes Absolute Auto 1400 /uL (0-900); Monocytes Percent Auto 8.1 % (3-14); Neutrophils Absolute Auto 14700 /uL (1500-7000); Neutrophils Percent Auto 85.2 % (50-75); Platelet Count 285 X10^3/uL (150-400); Red Blood Cell Count 4.28 X10^6/uL (4.0-5.2); Red Cell Distribution Width 14.2 % (11.6-14.8); White Blood Cell Count 17.3 X10^3/uL (4.5-11.0)
[2020-01-24 21:41] LABS: Alanine Aminotransferase 48 IU/L (<35); Albumin 3.8 g/dL (3.5-5.0); Albumin Globulin Ratio 1.1 (1.0-2.8); Alkaline Phosphatase 128 U/L (38-126); Aspartate Aminotransferase 53 IU/L (14-36); BUN Creatinine Ratio 7.7 (6-22); Bilirubin Total 0.6 mg/dL (0.2-1.3); Blood Urea Nitrogen 5 mg/dL (7-17); Carbon Dioxide 22 mmol/L (22-32); Chloride 102 mmol/L (98-107); Estimated Glomerular Filt Rate > 60.0 mL/min (>60); Globulin 3.5 g/dL (1.7-4.1); Glucose 140 mg/dL (70-100); HEMOLYSIS < 15 (0-50); Potassium 3.4 mmol/L (3.4-5.1); Sodium 134 mmol/L (137-145); Total Protein 7.3 g/dL (6.3-8.2)
[2020-01-24 21:45] LABS: Appearance Urine UA CLEAR; Bilirubin Urine UA NEGATIVE (NEGATIVE); Color Urine UA YELLOW; Glucose Urine UA NEGATIVE (Negative); Ketones Urine UA NEGATIVE (NEGATIVE); Leukocyte Esterase Urine UA TRACE (NEGATIVE); Nitrite Urine UA NEGATIVE (Negative); Occult Blood Urine UA 3+ (Negative); Protein Urine UA 1+ (Negative); Specific Gravity Urine UA 1.015 (1.000-1.035); Urobilinogen Urine UA 0.2 E.U./dL (0.2)
--- NOTE | 2020-01-24 21:52 | ED_ITS ---
HPI - Back Pain/Injury General Chief Complaint: Back Pain/Injury Stated Complaint: sharp pain in back,chills, fever Time Seen by Provider: 01/24/20 21:23 Source: patient Limitations: no limitations History of Present Illness HPI Narrative: Otherwise healthy 29-year-old young woman presents with 3-4 days of dysuria. Reports over the last 2 days the pain after she has urinated radiates up into the right pelvis and right flank. Today she has noted chills and rigors and the pain will not go away despite 800 mg of ibuprofen. She has been somewhat nauseated but has not actually vomited, she is having no diarrhea and no cough. She describes no vaginal discharge or specific pelvic pain. She does note that she had a child in October has had 2 menstrual cycles since both of which seem longer and heavier than her prepartum menses. She had a tubal ligation after that delivery. Related Data Previous Rx's Medication Instructions Recorded prenat.vits,octavia,[id number] 1 tab PO DAILY #90 tab 06/03/19 docusate sodium 250 mg PO DAILY #20 cap 11/08/19 ferrous gluconate 324 mg PO DAILY #30 tab 11/08/19 ibuprofen 600 mg PO Q6HR PRN #30 tab 11/08/19 levofloxacin 750 mg PO DAILY #10 tab 01/24/20 Allergies Allergy/AdvReac Type Severity Reaction Status Date / Time Penicillins [PENICILLINS] Allergy Unknown THROAT Verified 01/24/20 22:06 SWELLING - HIVES amoxicillin Allergy Swelling Verified 01/24/20 22:06 of Lip/Tongue/Throat adhesives Allergy Intermediate Hives Uncoded 01/24/20 22:06 Review of Systems Review of Systems Narrative: Remainder of review of systems including constitutional, ENT, cardiovascular, respiratory, GI, , musculoskeletal, skin, neurologic and psychiatric systems reviewed and are unremarkable except as noted in HPI. 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) Depression (Chronic ~2007) Developmental delay, mild (Chronic ~1994) GERD (gastroesophageal reflux disease) (Chronic ~2008) Oral cancer (Chronic ~2008) PTSD (post-traumatic stress disorder) (Chronic ~2013) Sterilization (Acute) Surgical History History of third molar tooth extraction (Resolved) Status post delivery (Resolved 02/04/10) Status post delivery (Resolved 03/30/11) Status post D&C (Resolved ~2017) Status post laparoscopic cholecystectomy (Resolved ~2011) Family History Father Colon cancer Congestive heart failure Mental health problem Heart disease Mother Mental health problem Brother Mental health problem Brother Mental health problem Grandmother No problems noted. Social History marital status: unmarried,living together household members: children pets and animals: Yes (Diesel) education level: high school occupational status: disabled current occupational exposures/hazards: Yes (lead paint) Smoking Status: Former smoker alcohol intake: never substance use type: marijuana Smoking Status: Former smoker alcohol intake frequency: other Substance Use Type: marijuana Exam Narrative Exam Narrative: General: Appears uncomfortable, slightly flushed but Able to give a complete and coherent history. Well-nourished well-developed HEENT: Moist mucous membranes, normal sclera with reactive pupils, Neck: supple Respiratory: Lungs are clear to auscultation, no wheezing no rales no rhonchi. Full and symmetrical air movement Cardiac: Regular rate and rhythm no murmurs no bruits Abdomen: Soft no left-sided abdominal pain or suprapubic pain. There is some minor right lower quadrant pain but fairly significant right flank pain seems to be radiating down into the right lower quadrant. She has no rebound or guarding and bowel tones are normal Skin: Warm and dry, no rashes Neurologic: Grossly neurologically intact with no obvious asymmetries or abnormalities Extremities: No trauma, well perfused Psych: Cooperative, appropriate insight and affect Initial Vital Signs Initial Vital Signs: Vital Signs Temperature 98.4 F 01/24/20 21:15 Pulse Rate 126 H 01/24/20 21:15 Respiratory Rate 20 01/24/20 21:15 Blood Pressure 128/66 01/24/20 21:15 Pulse Oximetry 95 01/24/20 21:15 Course Orders Ordered: ED Orders 01/24/20 21:15 Complete Blood Count AUTO DIFF Stat Comprehensive Metabolic Panel Stat Lactate (Lactic Acid) Stat 01/24/20 21:26 EKG-12 Lead Stat 01/24/20 21:35 Blood Culture Stat UA dip and micro [Urinalysis and Microscopic] Stat Urine Culture Stat 01/24/20 23:20 Lactate (Lactic Acid) Stat Discontinued Medications Acetaminophen (Tylenol) 975 mg PO NOW ONE Stop: 01/24/20 22:03 Last Admin: 01/24/20 22:09 Dose: 975 mg Documented by: TOMMY Sodium Chloride (Normal Saline 0.9%) 1,000 mls @ 1,000 mls/hr IV BOLUS ONE Stop: 01/24/20 22:25 Last Infusion: 01/24/20 22:35 Dose: 0 mls/hr Documented by: Admin: 01/24/20 21:31 Dose: 1,000 mls/hr Documented by: TOMMY Ceftriaxone Sodium/Dextrose (Rocephin) 2 gm in 50 mls @ 100 mls/hr IV NOW ONE Stop: 01/24/20 22:31 Last Infusion: 01/24/20 22:50 Dose: 0 mls/hr Documented by: Admin: 01/24/20 22:20 Dose: 100 mls/hr Documented by: TOMMY Sodium Chloride (Normal Saline 0.9%) 1,000 mls @ 1,000 mls/hr IV BOLUS ONE Stop: 01/24/20 23:01 Last Infusion: 01/24/20 23:11 Dose: 0 mls/hr Documented by: Admin: 01/24/20 22:09 Dose: 1,000 mls/hr Documented by: TOMMY Ketorolac Tromethamine (Toradol) 15 mg IV NOW ONE Stop: 01/24/20 22:03 Last Admin: 01/24/20 22:09 Dose: 15 mg Documented by: TOMMY Ondansetron HCl (Zofran) 4 mg IV NOW ONE Stop: 01/24/20 21:27 Last Admin: 01/24/20 21:30 Dose: 4 mg Documented by: TOMMY Vital Signs Vital signs: Vital Signs - 8 hr 01/24/20 21:15 01/24/20 21:34 01/24/20 22:00 Temperature 98.4 F Pulse Rate 126 H 118 H 114 H Respiratory Rate 20 25 H 33 H Blood Pressure 128/66 128/65 Pulse Oximetry 95 98 98 01/24/20 22:30 01/24/20 23:00 01/24/20 23:01 Temperature Pulse Rate 109 H 110 H 108 H Respiratory Rate 35 H Blood Pressure 120/63 Pulse Oximetry 98 99 MDM - Back Pain/Injury Medical Records Attestation: I reviewed the patient's medical records. Lab Data Attestation: I reviewed the patient's lab results. Result diagrams: 01/24/20 21:15 01/24/20 21:15 Labs: Lab Results 01/24/20 01/24/20 01/24/20 Range/Units 21:15 21:15 21:15 WBC 17.3 H (4.5-11.0) X10^3/uL RBC 4.28 (4.0-5.2) X10^6/uL Hgb 12.2 (12.0-16.0) g/dL Hct 36.7 (36-46) % MCV 85.7 (80-100) fL MCH 28.4 (26-34) PG MCHC 33.2 (30-36) % RDW 14.2 (11.6-14.8) % Plt Count 285 (150-400) X10^3/uL Neut % (Auto) 85.2 H (50-75) % Lymph % (Auto) 5.3 L (25-40) % [place] % (Auto) 8.1 (3-14) % Eos % (Auto) 1.0 L (2-4) % Baso % (Auto) 0.4 (0-2) % Neut # (Auto) 96371 H (7559-5888) /uL Lymph # (Auto) 900 L (9669-9863) /uL [place] # (Auto) 1400 H (0-900) /uL Eos # (Auto) 200 (0-450) /uL Baso # (Auto) 100 (0-100) /uL Sodium 134 L (137-145) mmol/L Potassium 3.4 (3.4-5.1) mmol/L Chloride 102 (98-107) mmol/L Carbon Dioxide 22 (22-32) mmol/L BUN 5 L (7-17) mg/dL Creatinine 0.65 (0.52-1.04) mg/dL Estimated GFR > 60.0 (>60) mL/min BUN/Creatinine Ratio 7.7 (6-22) Glucose 140 H (70-100) mg/dL Lactate 2.4 H (0.7-2.1) mmol/L Calcium 9.0 (8.4-10.2) mg/dL Total Bilirubin 0.6 (0.2-1.3) mg/dL AST 53 H (14-36) IU/L ALT 48 H (<35) IU/L Alkaline Phosphatase 128 H (38-126) U/L Total Protein 7.3 (6.3-8.2) g/dL Albumin 3.8 (3.5-5.0) g/dL Globulin 3.5 (1.7-4.1) g/dL Albumin/Globulin Ratio 1.1 (1.0-2.8) Urine Color Urine Appearance Urine pH (4.5-8.0) Ur Specific [place] (1.000-1.035) Urine Protein (Negative) Urine Glucose (UA) (Negative) g/dL Urine Ketones (NEGATIVE) Urine Occult Blood (Negative) Urine Nitrate (Negative) Urine Bilirubin (NEGATIVE) Urine Urobilinogen (0.2) E.U./dL Ur Leukocyte Esterase (NEGATIVE) Urine RBC (0-5/HPF) Urine WBC (0-5/HPF) Ur Squamous Epith Cells (0-5/HPF) Urine Bacteria (None) Ur Culture Indicated? 01/24/20 01/24/20 Range/Units 21:35 23:20 WBC (4.5-11.0) X10^3/uL RBC (4.0-5.2) X10^6/uL Hgb (12.0-16.0) g/dL Hct (36-46) % MCV (80-100) fL MCH (26-34) PG MCHC (30-36) % RDW (11.6-14.8) % Plt Count (150-400) X10^3/uL Neut % (Auto) (50-75) % Lymph % (Auto) (25-40) % [place] % (Auto) (3-14) % Eos % (Auto) (2-4) % Baso % (Auto) (0-2) % Neut # (Auto) (7022-5158) /uL Lymph # (Auto) (6173-0506) /uL [place] # (Auto) (0-900) /uL Eos # (Auto) (0-450) /uL Baso # (Auto) (0-100) /uL Sodium (137-145) mmol/L Potassium (3.4-5.1) mmol/L Chloride (98-107) mmol/L Carbon Dioxide (22-32) mmol/L BUN (7-17) mg/dL Creatinine (0.52-1.04) mg/dL Estimated GFR (>60) mL/min BUN/Creatinine Ratio (6-22) Glucose (70-100) mg/dL Lactate 1.0 (0.7-2.1) mmol/L Calcium (8.4-10.2) mg/dL Total Bilirubin (0.2-1.3) mg/dL AST (14-36) IU/L ALT (<35) IU/L Alkaline Phosphatase (38-126) U/L Total Protein (6.3-8.2) g/dL Albumin (3.5-5.0) g/dL Globulin (1.7-4.1) g/dL Albumin/Globulin Ratio (1.0-2.8) Urine Color Yellow Urine Appearance Clear Urine pH 7.0 (4.5-8.0) Ur Specific [place] 1.015 (1.000-1.035) Urine Protein 1+ H (Negative) Urine Glucose (UA) Negative (Negative) g/dL Urine Ketones Negative (NEGATIVE) Urine Occult Blood 3+ H (Negative) Urine Nitrate Negative (Negative) Urine Bilirubin Negative (NEGATIVE) Urine Urobilinogen 0.2 (0.2) E.U./dL Ur Leukocyte Esterase Trace H (NEGATIVE) Urine RBC 1-5/hpf (0-5/HPF) Urine WBC 10-30/hpf H (0-5/HPF) Ur Squamous Epith Cells 1-5 /hpf (0-5/HPF) Urine Bacteria Many (>30) H (None) Ur Culture Indicated? Specimen cultured Point of Care Testing Test Results Negative Urine Dip Bedside Urine Glucose Negative Bedside Urine Bilirubin - Negative Bedside Urine Ketone - Negative Urine Specific [place] 1.015 Bedside Urine Occult Blood ++ Bedside Urine pH 6.5 Bedside Urine Protein + 30 Bedside Urine Urobilinogen - Negative Bedside Urine Nitrite - Negative Bedside Urine Leukocytes + 70 Esterase MDM Narrative Medical decision making narrative: 29-year-old woman with urinary symptoms for 4 days progressing to fevers chills right flank pain with lab work and urinalysis all consistent with an acute pyelonephritis. Possibility of appendicitis, renal lithiasis, ovarian torsion or PID are all far less likely. After 2 L of fluid, 2 g of ceftriaxone, Tylenol and Toradol she is feeling significantly better. Able the eat and drink without difficulties. Lactic acid 2.4 and after fluid boluses down to 1. At this point she is safe for home discharge. Will review anticipated course of symptoms including fevers over the next couple of days. Will have her complete a course levofloxacin 750 mg for 10 days Discharge Plan Departure Patient Disposition: Home Clinical Impression: Pyelonephritis Instructions: DI for Kidney Infection Activity Restrictions/Additional Instructions: Thank you for coming in today You were quite sick when you got here. You have pyelonephritis, a kidney infection. You received IV antibiotics, fluids and pain medication and are doing significantly better. Blood work repeated at the end of your visit was equally reassuring. You need to complete 10 additional days of antibiotics, levofloxacin 750 mg once daily. 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 Using 400 mg of ibuprofen (2 [id number] pills) and 1 Tylenol every 6 hours can be very helpful in controlling pain. With pyelonephritis you should expect to continue to have fairly high fevers for the next 2-3 days. Please make sure that you are drinking plenty of fluids. If you have worsening pain or fevers by Sunday or notice new symptoms, please return to the emergency department. I hope you feel better Prescriptions: New levofloxacin 750 mg tablet 750 mg PO DAILY Qty: 10 RF: 0 No Action prenat.vits,octavia,[id number] Tablet 1 tab PO DAILY Qty: 90 RF: 3 ibuprofen 600 mg Tablet 600 mg PO Q6HR PRN (Reason: Fever/Mild Pain (1-3)) Qty: 30 RF: 0 docusate sodium 250 mg Capsule 250 mg PO DAILY Qty: 20 RF: 0 ferrous gluconate 324 mg (38 mg iron) Tablet 324 mg PO DAILY Qty: 30 RF: 0 Referrals: Aime Lubin MD [Primary Care Provider] -
[2020-01-24 22:02] LABS: Bacteria Urine Many (>30); RBC Urine 1-5/HPF (0-5/HPF); Squamous Epithelial Cell Urine 1-5 /HPF (0-5/HPF); WBC Urine 10-30/HPF (0-5/HPF)
[2020-01-24 22:03] LABS: Culture Indicated Urine Specimen Cultured
[2020-01-24] MEDS: ACETAMINOPHEN 325 MG TABLET 975 MG PO (22:09)
[2020-01-24] MEDS: KETOROLAC 60 MG/2 ML VIAL 15 MG IV (22:09)
[2020-01-24] MEDS: CEFTRIAXONE 2 GM/50 ML FROZ.PIGGY IV (22:20)
[2020-01-24 23:29] LABS: Reflexed Lactate in 2 Hours Y
[2020-01-25] VITALS: PULSE 101; RESP 24; O2SAT 98
[2020-01-25 00:01] VITALS: BP 128/62; PULSE 101; PULSE 99; RESP 25; O2SAT 98
== END 2020-01-25 00:18 | disposition home or self-care (01) ==
PROVIDERS: Emergency Provider Emergency Medicine; PCP Student in an Organized Health Care Education/Training Program
DX: R11.2 Nausea with vomiting, unspecified (principal); N12 Tubulo-interstitial nephritis, not specified as acute or chronic
CPT/HCPCS: 36415; 80053; 81001; 81003; 81025; 83605; 85025; 87040; 87077; 87086; 87186; 93005; 96361; 96365; 96375; 99284; J0696; J1885; J2405

== ENCOUNTER 2020-10-10 12:06 | Emergency (ER) | payer MEDICARE, MEDICAID, SELFPAY ==
[2019-07-29 08:35] VITALS: BMI 40.6
[2020-10-10] VITALS (8 sets, daily range): BP systolic 128–136; BP diastolic 73–87; PULSE 71–90; RESP 18–21; TEMP 36.6; O2SAT 98–100; BMI 42.5
[2020-10-10 12:32] LABS: Prothrombin Time 11.6 SECONDS (10.1-12.7)
[2020-10-10 12:34] LABS: PTT Partial Thromboplastin Tim 47 SECONDS (26.4-36.2)
[2020-10-10 12:39] LABS: Alanine Aminotransferase 22 IU/L (<35); Albumin 4.3 g/dL (3.5-5.0); Albumin Globulin Ratio 1.2 (1.0-2.8); Alkaline Phosphatase 111 U/L (38-126); Aspartate Aminotransferase 26 IU/L (14-36); BUN Creatinine Ratio 8.1 (6-22); Bilirubin Total 0.5 mg/dL (0.2-1.3); Blood Urea Nitrogen 5 mg/dL (7-17); Calcium 9.7 mg/dL (8.4-10.2); Carbon Dioxide 20 mmol/L (22-32); Chloride 108 mmol/L (98-107); Estimated Glomerular Filt Rate > 60.0 mL/min (>60); Globulin 3.7 g/dL (1.7-4.1); Glucose 106 mg/dL (70-100); HEMOLYSIS < 15 (0-50); Lipase 47 U/L (23-300); Sodium 136 mmol/L (137-145)
[2020-10-10 12:40] LABS: Add Manual Diff / Slide Review NO; Basophils Absolute Auto 100 /uL (0-100); Basophils Percent Auto 0.5 % (0-2); Eosinophils Absolute Auto 400 /uL (0-450); Eosinophils Percent Auto 3.2 % (2-4); Hematocrit 45.8 % (36-46); Hemoglobin 15.4 g/dL (12.0-16.0); Lymphocytes Absolute Auto 2600 /uL (1100-4500); Lymphocytes Percent Auto 21.7 % (25-40); Mean Corpuscular HGB Conc 33.6 % (30-36); Mean Corpuscular Volume 86.4 fL (80-100); Monocytes Absolute Auto 1000 /uL (0-900); Monocytes Percent Auto 8.6 % (3-14); Neutrophils Absolute Auto 8000 /uL (1500-7000); Platelet Count 368 X10^3/uL (150-400); Red Blood Cell Count 5.31 X10^6/uL (4.0-5.2); Red Cell Distribution Width 12.7 % (11.6-14.8); White Blood Cell Count 12.1 X10^3/uL (4.5-11.0)
[2020-10-10 13:35] LABS: Amorphous Sediment Urine 1+; Bacteria Urine Many (>30); Culture Indicated Urine Specimen Cultured; Mucus Urine 1+ (Negative); RBC Urine 1-5/HPF (0-5/HPF); Squamous Epithelial Cell Urine 1-5 /HPF (0-5/HPF); WBC Urine 1-5/HPF (0-5/HPF)
--- NOTE | 2020-10-10 13:51 | ED_ITS ---
HPI - Abdominal Pain General Chief Complaint: Abdominal Pain Stated Complaint: stomach pain Time Seen by Provider: 10/10/20 13:02 Source: patient Mode of arrival: Wheelchair Limitations: no limitations History of Present Illness HPI narrative: Patient complains of abdominal cramping bloating and watery diarrhea with nausea for the past 2 days. She states she possibly ate at contaminated sandwich at the market the other day. Sunday. No one else ate the same sandwich. Since then has had the symptoms. No fever chills. No cough cold or congestion. Related Data Previous Rx's Medication Instructions Recorded aripiprazole 2 mg tablet 2 mg PO DAILY #30 tab 03/02/20 olanzapine 5 mg disintegrating 5 mg PO DAILY PRN #30 tab 03/02/20 tablet hydrocodone-acetaminophen 1 tab PO Q6H PRN #7 tab 10/10/20 ondansetron 4 mg PO Q8H PRN #10 tab 10/10/20 Allergies Allergy/AdvReac Type Severity Reaction Status Date / Time adhesive Allergy Intermediate Hives Verified 10/10/20 13:57 Penicillins [PENICILLINS] Allergy Unknown THROAT Verified 03/02/20 14:36 SWELLING - HIVES amoxicillin Allergy Swelling Verified 03/02/20 14:36 of Lip/Tongue/Throat Review of Systems Review of Systems Narrative: GENERAL: Denies chills, fatigue, malaise, fever, sweats. HEENT: Denies sinus pain, ear pain, sore throat RESPIRATORY: Denies dyspnea, cough CARDIOVASCULAR: Denies chest pain, palpitations GASTROINTESTINAL: Complaint nausea, denies vomiting, complains of diarrhea and abdominal pain : Denies dysuria, frequency, hematuria MUSCULOSKELETAL: denies muscle or bony pain SKIN: Denies rash, skin lesions NEUROLOGIC: Denies weakness, numbness ROS Unobtainable: All systems reviewed & are unremarkable except as noted in HPI and below Patient History Medical History (Updated 10/10/20 @ 16:01 by Wesley Braden MD) ADHD (~2007) Anxiety (~2007) Bipolar disorder (~2007) Cervical cancer (~2008) Cystic fibrosis carrier Depression (~2007) Developmental delay, mild (~1994) GERD (gastroesophageal reflux disease) (~2008) Oral cancer (~2008) PTSD (post-traumatic stress disorder) (~2013) Sterilization Surgical History History of third molar tooth extraction Status post delivery (02/04/10) Status post delivery (03/30/11) Status post D&C (~2017) Status post laparoscopic cholecystectomy (~2011) Family History Father Colon cancer Congestive heart failure Mental health problem Heart disease Mother Mental health problem Brother Mental health problem Brother Mental health problem Grandmother No problems noted. Social History marital status: unmarried,living together household members: children pets and animals: Yes (Diesel) education level: high school occupational status: disabled current occupational exposures/hazards: Yes (lead paint) Smoking Status: Former smoker alcohol intake: never substance use type: marijuana Smoking Status: Former smoker alcohol intake frequency: other Substance Use Type: marijuana Exam Narrative Exam Narrative: GENERAL: in no distress, not toxic not dyspneic HEAD: Normocephalic. EYES: Pupils equal round No scleral icterus. No injection no discharge ENT: Mucous membranes moist. NECK: Trachea midline. CARDIOVASCULAR: Regular rate and rhythm without murmurs RESPIRATORY: Clear to auscultation. Breath sounds equal bilaterally. No wheezes, rales, or rhonchi. GASTROINTESTINAL: Abdomen soft, non-tender, no peritoneal signs, bowel sounds present EXTREMITIES: No gross deformities. BACK: No flank tenderness. NEURO: AOx4. SKIN: Warm and dry PSYCH: Not anxious, is cooperative Initial Vital Signs Initial Vital Signs: Vital Signs Temperature 98 F 10/10/20 12:10 Pulse Rate 90 10/10/20 12:10 Respiratory Rate 20 10/10/20 12:10 Blood Pressure 136/87 10/10/20 12:10 Pulse Oximetry 98 10/10/20 12:10 Course Course Course Narrative: No new issues during course of stay Orders Ordered: Discontinued Medications Sodium Chloride (Normal Saline 0.9%) 1,000 mls @ 1,000 mls/hr IV BOLUS ONE Stop: 10/10/20 14:49 Last Infusion: 10/10/20 16:32 Dose: 0 mls/hr Documented by: Admin: 10/10/20 13:59 Dose: 1,000 mls/hr Documented by: KATHY Sodium Chloride (Normal Saline 0.9%) 1,000 mls @ 1,000 mls/hr IV BOLUS ONE Stop: 10/10/20 16:31 Last Infusion: 10/10/20 17:25 Dose: 0 mls/hr Documented by: Admin: 10/10/20 16:33 Dose: 1,000 mls/hr Documented by: KTAHY Morphine Sulfate (Morphine 4 Mg/Ml Inj) 4 mg IV NOW ONE Stop: 10/10/20 13:51 Last Admin: 10/10/20 14:00 Dose: 4 mg Documented by: KATHY Ondansetron HCl (Ondansetron 4 Mg/2 Ml Inj) 4 mg IV NOW ONE Stop: 10/10/20 13:51 Last Admin: 10/10/20 13:59 Dose: 4 mg Documented by: KATHY Reevaluation(s) Reevaluation #1: Feeling much better after medications and IV fluids. Reviewed results with patient. Agrees with follow-up and discharge. Not toxic Time: 15:37 Vital Signs Vital signs: Vital Signs - 8 hr 10/10/20 12:10 10/10/20 12:24 10/10/20 12:30 Temperature 98 F Pulse Rate 90 82 85 Respiratory Rate 20 20 21 Blood Pressure 136/87 Pulse Oximetry 98 10/10/20 13:00 Temperature Pulse Rate 76 Respiratory Rate 18 Blood Pressure Pulse Oximetry MDM - Abdominal Pain Differential Diagnosis Differential diagnosis: Likely abdominal pain, acute appendicitis, diverticulitis, gastroenteritis and small bowel obstruction Lab Data Attestation: I reviewed the patient's lab results. Result diagrams: 10/10/20 12:17 10/10/20 12:17 Labs: Lab Results 10/10/20 10/10/20 10/10/20 Range/Units 12:17 12:17 12:17 WBC 12.1 H (4.5-11.0) X10^3/uL RBC 5.31 H (4.0-5.2) X10^6/uL Hgb 15.4 (12.0-16.0) g/dL Hct 45.8 (36-46) % MCV 86.4 (80-100) fL MCH 29.0 (26-34) PG MCHC 33.6 (30-36) % RDW 12.7 (11.6-14.8) % Plt Count 368 (150-400) X10^3/uL Neut % (Auto) 66.0 (50-75) % Lymph % (Auto) 21.7 L (25-40) % [place] % (Auto) 8.6 (3-14) % Eos % (Auto) 3.2 (2-4) % Baso % (Auto) 0.5 (0-2) % Neut # (Auto) 8000 H (5533-9893) /uL Lymph # (Auto) 2600 (1560-6039) /uL [place] # (Auto) 1000 H (0-900) /uL Eos # (Auto) 400 (0-450) /uL Baso # (Auto) 100 (0-100) /uL PT 11.6 (10.1-12.7) SECONDS INR 1.0 (0.9-1.3) APTT 47 H (26.4-36.2) SECONDS Sodium 136 L (137-145) mmol/L Potassium 4.0 (3.4-5.1) mmol/L Chloride 108 H (98-107) mmol/L Carbon Dioxide 20 L (22-32) mmol/L BUN 5 L (7-17) mg/dL Creatinine 0.62 (0.52-1.04) mg/dL Estimated GFR > 60.0 (>60) mL/min BUN/Creatinine Ratio 8.1 (6-22) Glucose 106 H (70-100) mg/dL Calcium 9.7 (8.4-10.2) mg/dL Total Bilirubin 0.5 (0.2-1.3) mg/dL AST 26 (14-36) IU/L ALT 22 (<35) IU/L Alkaline Phosphatase 111 (38-126) U/L Total Protein 8.0 (6.3-8.2) g/dL Albumin 4.3 (3.5-5.0) g/dL Globulin 3.7 (1.7-4.1) g/dL Albumin/Globulin Ratio 1.2 (1.0-2.8) Lipase 47 (23-300) U/L Urine RBC (0-5/HPF) Urine WBC (0-5/HPF) Ur Squamous Epith Cells (0-5/HPF) Amorphous Sediment Urine Bacteria (None) Urine Mucus (Negative) Ur Culture Indicated? Stl C. cayetanensis PCR (Not Detect) Stool Rotavirus (PCR) (Not Detect) Stool Adenovirus (PCR) (Not Detect) Stool Astrovirus (PCR) (Not Detect) Stool Cryptosporidium PCR (Not Detect) Stl E.coli Shiga Tox PCR (Not Detect) St Sh/Enteroin Ecoli PCR (Not Detect) Stool E coli O157 PCR Stl Enterotoxigenic E PCR (Not Detect) Stool EPEC (PCR) (Not Detect) Stl E. histolytica PCR (Not Detect) Stool Giardia Lamblia PCR (Not Detect) Stool Sapovirus (PCR) (Not Detect) Stl P. shigelloides PCR (Not Detect) St Y.enterocolitica PCR (Not Detect) Stool Vibrio (PCR) (Not Detect) Stl Vibrio cholerae PCR (Not Detect) Stl Enteroaggr Ecoli PCR (Not Detect) Stl Norovirus GI/GII PCR (Not Detect) Campylobacter (PCR) (Not Detect) C. difficile Tox (PCR) (Not Detect) SARS-CoV-2 (PCR) (Negative) Salmonella (PCR) (Not Detect) 10/10/20 10/10/20 10/10/20 Range/Units 13:15 13:35 15:38 WBC (4.5-11.0) X10^3/uL RBC (4.0-5.2) X10^6/uL Hgb (12.0-16.0) g/dL Hct (36-46) % MCV (80-100) fL MCH (26-34) PG MCHC (30-36) % RDW (11.6-14.8) % Plt Count (150-400) X10^3/uL Neut % (Auto) (50-75) % Lymph % (Auto) (25-40) % [place] % (Auto) (3-14) % Eos % (Auto) (2-4) % Baso % (Auto) (0-2) % Neut # (Auto) (3157-9832) /uL Lymph # (Auto) (7068-5171) /uL [place] # (Auto) (0-900) /uL Eos # (Auto) (0-450) /uL Baso # (Auto) (0-100) /uL PT (10.1-12.7) SECONDS INR (0.9-1.3) APTT (26.4-36.2) SECONDS Sodium (137-145) mmol/L Potassium (3.4-5.1) mmol/L Chloride (98-107) mmol/L Carbon Dioxide (22-32) mmol/L BUN (7-17) mg/dL Creatinine (0.52-1.04) mg/dL Estimated GFR (>60) mL/min BUN/Creatinine Ratio (6-22) Glucose (70-100) mg/dL Calcium (8.4-10.2) mg/dL Total Bilirubin (0.2-1.3) mg/dL AST (14-36) IU/L ALT (<35) IU/L Alkaline Phosphatase (38-126) U/L Total Protein (6.3-8.2) g/dL Albumin (3.5-5.0) g/dL Globulin (1.7-4.1) g/dL Albumin/Globulin Ratio (1.0-2.8) Lipase (23-300) U/L Urine RBC 1-5/hpf (0-5/HPF) Urine WBC 1-5/hpf (0-5/HPF) Ur Squamous Epith Cells 1-5 /hpf (0-5/HPF) Amorphous Sediment 1+ Urine Bacteria Many (>30) H (None) Urine Mucus 1+ H (Negative) Ur Culture Indicated? Specimen cultured Stl C. cayetanensis PCR Not detected (Not Detect) Stool Rotavirus (PCR) Not detected (Not Detect) Stool Adenovirus (PCR) Not detected (Not Detect) Stool Astrovirus (PCR) Not detected (Not Detect) Stool Cryptosporidium PCR Not detected (Not Detect) Stl E.coli Shiga Tox PCR Not detected (Not Detect) St Sh/Enteroin Ecoli PCR Not detected (Not Detect) Stool E coli O157 PCR Not Reportable Stl Enterotoxigenic E PCR Not detected (Not Detect) Stool EPEC (PCR) Not detected (Not Detect) Stl E. histolytica PCR Not detected (Not Detect) Stool Giardia Lamblia PCR Not detected (Not Detect) Stool Sapovirus (PCR) Not detected (Not Detect) Stl P. shigelloides PCR Not detected (Not Detect) St Y.enterocolitica PCR Not detected (Not Detect) Stool Vibrio (PCR) Not detected (Not Detect) Stl Vibrio cholerae PCR Not detected (Not Detect) Stl Enteroaggr Ecoli PCR Not detected (Not Detect) Stl Norovirus GI/GII PCR Not detected (Not Detect) Campylobacter (PCR) Not detected (Not Detect) C. difficile Tox (PCR) Not detected (Not Detect) SARS-CoV-2 (PCR) Negative (Negative) Salmonella (PCR) Not detected (Not Detect) Point of care testing: Point of Care Testing Test Results Negative Urine Dip Bedside Urine Glucose Negative Bedside Urine Bilirubin + 1 Bedside Urine Ketone - Negative Urine Specific [place] 1.030 Bedside Urine Occult Blood + Bedside Urine pH 6 Bedside Urine Protein +/- 15 Bedside Urine Urobilinogen - Negative Bedside Urine Nitrite - Negative Bedside Urine Leukocytes - Negative Esterase Imaging Data CT scan - abdomen/pelvis: Radiologist's Impression: [address] [id number] Scan ReportSigned Patient: Belkis Coello JMR#: [id number]: [id number]:[id number]/Sex: 30 / FDate of Service: 10/10/20Loc: EDAccession Number: [id number] Procedure: CT abdomen pelvis w con Ordering Provider: Wesley Braden MD PROCEDURE: CT ABDOMEN PELVIS W CON INDICATIONS: IV contrast only/abdominal pain/diarrhea TECHNIQUE: After the administration of intravenous contrast, 5 mm thick sections acquired from the diaphragm to the symphysis. 5 mm coronal and sagittal reformats were acquired. For radiation dose reduction, the following was used: automated exposure control, adjustment of mA and/or kV according to patient size. COMPARISON: None. FINDINGS: Image quality: Excellent. ABDOMEN: Lung bases: Lung bases are clear. Heart size is normal. Solid organs: Liver is normal in size and enhancement. Incidental note is made of focal fatty infiltration adjacent to the falciform ligament, which is not regarded to be pathologic. Gallbladder has been removed. Biliary system is non dilated. Pancreas enhances normally. Spleen is normal in size and enhancement. No adrenal nodules. Kidneys demonstrate normal size and enhancement, without hydronephrosis. Peritoneum and bowel: Mild prominence of fluid-filled small bowel can be seen, with loops measuring up to 2.5 cm. The colon is not distended, although there is liquid stool seen within the colon, including distally. No free air or significant free fluid can be seen. A normal appendix is incidentally noted. Nodes and vessels: No retroperitoneal or mesenteric adenopathy by size criteria. Aorta and inferior vena cava are normal in size. Miscellaneous: A mild periumbilical hernia is seen, containing fat. PELVIS: Genitourinary: Bladder wall thickness is normal. The uterus appears normal for age. No adnexal masses are seen. Miscellaneous: No inguinal hernias or adenopathy. Bones: No suspicious bony lesions. No vertebral body compression fractures. IMPRESSION: Suspected enteritis, with liquid stool seen within the distal colon, which is consistent with the given clinical history of diarrhea. Incidental note is made of: Cholecystectomy Fat containing periumbilical hernia Normal appendix Dictated by: Ryan Rivera M.D. on 10/10/2020 at 14:17 Approved by: Ryan Rivera M.D. on 10/10/2020 at 14:19 MDM Narrative Medical decision making narrative: Appropriate for discharge home. Not toxic. Exam reassuring. Laboratory studies reassuring. Patient agrees with treatment plan and discharge home and follow-up. 2 L normal saline given. Pain controlled. Nausea controlled. At this time no antibiotics. GI panel from stool culture completed. Appropriate for prescriptions provided for brief pain control., patient not toxic Discharge Plan Departure Patient Disposition: Home Clinical Impression: Gastroenteritis Instructions: Diarrhea, Gastroenteritis Diet Activity Restrictions/Additional Instructions: No driving today. See family doctor this week for recheck. Keep well hydrated. Return if worse if any questions or concerns. Symptoms today may have been from contaminated food. However possibility viral infection can cause same symptoms. Prescriptions: New hydrocodone-acetaminophen 5-325 mg tablet 1 tab PO Q6H PRN (Reason: pain) Qty: 7 RF: 0 ondansetron 4 mg tablet,disintegrating 4 mg PO Q8H PRN (Reason: nausea and vomiting) Qty: 10 RF: 0 No Action aripiprazole 2 mg tablet 2 mg PO DAILY Qty: 30 RF: 0 olanzapine 5 mg tablet,disintegrating 5 mg PO DAILY PRN (Reason: Anxiety) Qty: 30 RF: 0 Referrals: Aime Lubin MD [Primary Care Provider] -
[2020-10-10] MEDS: ONDANSETRON 4 MG/2 ML INJ IV (13:59)
[2020-10-10] MEDS: SODIUM CHLORIDE 0.9% 1,000 ML 1000 ML IV ×2 (13:59→16:33)
[2020-10-10] MEDS: MORPHINE 4 MG/ML INJ IV (14:00)
[2020-10-10 15:21] LABS: Adenovirus F 40/41 Not Detected (Not Detect); Astrovirus Not Detected (Not Detect); Campylobacter Not Detected (Not Detect); Clostridium difficile toxin AB Not Detected (Not Detect); Cryptosporidium Not Detected (Not Detect); Cyclospora cayetanensis Not Detected (Not Detect); Entamoeba histolytica Not Detected (Not Detect); Enteroaggregative E.coli Not Detected (Not Detect); Enteropathogenic E.coli Not Detected (Not Detect); Enterotoxigenic E.coli It/st Not Detected (Not Detect); Giardia lamblia Not Detected (Not Detect); Norovirus GI/GII Not Detected (Not Detect); Plesiomonsa shigelloides Not Detected (Not Detect); Rotavirus A Not Detected (Not Detect); Salmonella Not Detected (Not Detect); Sapovirus Not Detected (Not Detect); Shiga-like toxin-prod E.coli Not Detected (Not Detect); Shigella/Enteroinvasive E.coli Not Detected (Not Detect); Vibrio Not Detected (Not Detect); Vibrio cholerae Not Detected (Not Detect); Yersinia enterocolitica Not Detected (Not Detect)
[2020-10-10 16:03] LABS: COVID19 -Nasal RAPID Negative (Negative)
== END 2020-10-10 17:27 | disposition home or self-care (01) ==
PROVIDERS: Emergency Provider Emergency Medicine; PCP Student in an Organized Health Care Education/Training Program
DX: K52.9 Noninfective gastroenteritis and colitis, unspecified (principal); R11.0 Nausea; Z20.822 Contact with and (suspected) exposure to COVID-19
CPT/HCPCS: 36415; 74177; 80053; 81003; 81015; 81025; 83690; 85025; 85610; 85730; 87086; 87507; 87635; 96361; 96374; 96375; 99284; C9803; J2270; J2405; Q9967

== ENCOUNTER → 2020-12-14 11:14 | Outpatient (CLI) | payer MEDICARE, MEDICAID, SELFPAY ==
[2019-07-29 08:35] VITALS: BMI 40.6
[2020-12-14 11:45] LABS: COVID19 -Nasal RAPID Negative (Negative)
== END ==
PROVIDERS: PCP Student in an Organized Health Care Education/Training Program; Visit Provider Physician Assistant
DX: Z20.822 Contact with and (suspected) exposure to COVID-19 (principal); J02.9 Acute pharyngitis, unspecified
CPT/HCPCS: 87070; 87635

== ENCOUNTER → 2021-01-03 14:32 | Outpatient (CLI) | payer MEDICARE, MEDICAID, SELFPAY ==
[2019-07-29 08:35] VITALS: BMI 40.6
== END ==
PROVIDERS: PCP Student in an Organized Health Care Education/Training Program; Visit Provider Registered Nurse
DX: Z20.2 Contact with and (suspected) exposure to infections with a predominantly sexual mode of transmission (principal)
CPT/HCPCS: 87210

== ENCOUNTER → 2021-01-03 14:34 | Outpatient (CLI) | payer MEDICARE, MEDICAID, SELFPAY ==
[2019-07-29 08:35] VITALS: BMI 40.6
[2021-01-03 15:38] LABS: C-Reactive Protein Quant 0.9 mg/dL (<1.0)
[2021-01-03 15:39] LABS: Erythrocyte Sedimentation Rate 43 MM/HR (0-20)
[2021-01-03 16:42] LABS: Hepatitis B Surface Antigen NEGATIVE s/c (NEGATIVE)
[2021-01-03 16:57] LABS: HIV 1 & 2 Ab/Ag 4th Gen Combo NEGATIVE (NEGATIVE); Hep C Virus Ab w/Reflex Quant NEGATIVE s/c (NEGATIVE)
[2021-01-04 03:14] LABS: HSV1IGG < 0.91 index (0.00-0.90)
[2021-01-04 07:42] LABS: RPR Screen Non Reactive (Non Reactive)
[2021-01-04 18:19] LABS: HSV I/II IgM <0.91 Ratio (0.00-0.90)
== END ==
PROVIDERS: PCP Student in an Organized Health Care Education/Training Program; Referring Provider Registered Nurse; Visit Provider Registered Nurse
DX: Z20.2 Contact with and (suspected) exposure to infections with a predominantly sexual mode of transmission (principal); R10.2 Pelvic and perineal pain; Z20.828 Contact with and (suspected) exposure to other viral communicable diseases
CPT/HCPCS: 36415; 85651; 86140; 86592; 86694; 86695; 86696; 86803; 87210; 87340; 87389

== ENCOUNTER 2021-06-20 16:54 | Emergency (ER) | payer MEDICARE, MEDICAID, SELFPAY ==
[2019-07-29 08:35] VITALS: BMI 40.6
[2021-06-20 17:03] VITALS: BP 147/98; PULSE 106; RESP 24; TEMP 37; O2SAT 98
--- NOTE | 2021-06-20 21:09 | ED.DENTAL ---
HPI - Dental/Oral General Chief complaint: Dental/Oral Stated complaint: Rt Sided Facial/Dental Pain Time Seen by Provider: 06/20/21 21:05 Source: patient Mode of arrival: Ambulatory History of Present Illness HPI Narrative: 31-year-old woman with bipolar disorder who fractured tooth number 31 today. This tooth has had prior dental work. It is quite tender to air touching the surface and she is in significant amount of pain. She has no other complaints or issues at this time She describes no fever, cough, chills. There has been no intraoral bleeding, numbness. No nausea or vomiting. Related Data Previous Rx's Medication Instructions Recorded aripiprazole 2 mg tablet 2 mg PO DAILY #30 tab 03/02/20 olanzapine 5 mg disintegrating 5 mg PO DAILY PRN #30 tab 03/02/20 tablet ondansetron 4 mg disintegrating 4 mg PO Q8H PRN #10 tab 10/10/20 tablet Allergies Allergy/AdvReac Type Severity Reaction Status Date / Time adhesive Allergy Intermediate Hives Verified 10/10/20 13:57 Penicillins [PENICILLINS] Allergy Unknown THROAT Verified 03/02/20 14:36 SWELLING - HIVES amoxicillin Allergy Swelling Verified 03/02/20 14:36 of Lip/Tongue/Throat Review of Systems Review of Systems Narrative: Remainder of complete review of systems is otherwise unremarkable except for that included in the HPI. Patient History Medical History ADHD (~2007) Anxiety (~2007) Bipolar disorder (~2007) Cervical cancer (~2008) Cystic fibrosis carrier Depression (~2007) Developmental delay, mild (~1994) GERD (gastroesophageal reflux disease) (~2008) Oral cancer (~2008) Pelvic pain PTSD (post-traumatic stress disorder) (~2013) Sterilization Surgical History History of third molar tooth extraction Status post delivery (02/04/10) Status post delivery (03/30/11) Status post D&C (~2017) Status post laparoscopic cholecystectomy (~2011) Family History Father Colon cancer Congestive heart failure Mental health problem Heart disease Mother Mental health problem Brother Mental health problem Brother Mental health problem Grandmother No problems noted. Social History marital status: unmarried,living together household members: children pets and animals: Yes (Diesel) education level: high school occupational status: disabled current occupational exposures/hazards: Yes (lead paint) Smoking Status: Former smoker alcohol intake: never substance use type: marijuana Smoking Status: Former smoker alcohol intake frequency: other Substance Use Type: marijuana Exam Initial Vital Signs Initial Vital Signs: Vital Signs Temperature 98.6 F 06/20/21 17:03 Pulse Rate 106 H 06/20/21 17:03 Respiratory Rate 24 06/20/21 17:03 Blood Pressure 147/98 H 06/20/21 17:03 Pulse Oximetry 98 06/20/21 17:03 General: Alert appropriate in no acute distress HEENT: Moderately good dental hygiene with tooth number 31 having deep amalgam filling and it appears that the posterior buccal cusp has fractured off. There is no pointing abscess or swelling over the jaw. No cervical adenopathy. Respiratory: Able to speak in full sentences, no obvious respiratory distress Skin: No obvious rashes, warm and dry Neurologic: Grossly intact no obvious asymmetries or abnormalities Psych: appropriate insight and affect, cooperative Course Vital Signs Vital signs: Vital Signs - 8 hr 06/20/21 17:03 Temperature 98.6 F Pulse Rate 106 H Respiratory Rate 24 Blood Pressure 147/98 H Pulse Oximetry 98 MDM - Dental/Oral MDM Narrative Medical decision making narrative: 31-year-old woman with the posterior cusp fracture of tooth number 31 with exposed root based on severe amount of pain that she is having. We discussed going to the drugstore in finding some dental wax to put over the 2 so that the root isn't completely exposed. She has her enough that she felt IM dose of Toradol with the helpful and I suggested that she continue with ibuprofen and Tylenol. Definitive treatment will need to be with a dentist and she has multiple numbers to continue trying. She is safe for home discharge Discharge Plan Departure Patient Disposition: Home Clinical Impression: Fracture of tooth Instructions: Tooth Fracture Activity Restrictions/Additional Instructions: Thank you for coming in You did break off a part of that back lower tooth on the right side. The nerve is exposed which is white hurts so much. You need to go to 1 of the local drug stores and find some dental wax. Using this to put over the exposed area of the tooth will cover up the root so that it is not quite a sensitive. You need to see a dentist to have the tooth actually fixed to fully deal with the pain. Using 400 mg of ibuprofen (2 [id number] pills) and 1 Tylenol every 6 hours can be very helpful in controlling pain. I wish you the best Prescriptions: No Action aripiprazole 2 mg tablet 2 mg PO DAILY Qty: 30 0RF olanzapine 5 mg tablet,disintegrating 5 mg PO DAILY PRN (Reason: Anxiety) Qty: 30 0RF Rx Instructions: Take 1 tab by mouth once daily if needed for agitation ondansetron 4 mg tablet,disintegrating 4 mg PO Q8H PRN (Reason: nausea and vomiting) Qty: 10 0RF Referrals: Aime Lubin MD [Primary Care Provider] -
[2021-06-20] MEDS: KETOROLAC 30 MG/ML VIAL IM (21:19)
== END 2021-06-20 21:43 | disposition home or self-care (01) ==
PROVIDERS: Emergency Provider Emergency Medicine; PCP Student in an Organized Health Care Education/Training Program
DX: S02.5XXB Fracture of tooth (traumatic), initial encounter for open fracture (principal); X58.XXXA Exposure to other specified factors, initial encounter
CPT/HCPCS: 96372; 99283; J1885

== ENCOUNTER → 2022-04-12 15:58 | Outpatient (CLI) | payer MEDICARE, MEDICAID, SELFPAY ==
[2019-07-29 08:35] VITALS: BMI 40.6
[2022-04-12 16:24] LABS: Add Manual Diff / Slide Review NO; Basophils Absolute Auto 100 /uL (0-100); Basophils Percent Auto 1.2 % (0-2); Eosinophils Absolute Auto 200 /uL (0-450); Eosinophils Percent Auto 2.2 % (2-4); Hematocrit 39.5 % (36-46); Lymphocytes Absolute Auto 3000 /uL (1100-4500); Lymphocytes Percent Auto 30.4 % (25-40); Mean Corpuscular Hemoglobin 29.1 PG (26-34); Mean Corpuscular Volume 88.2 fL (80-100); Monocytes Absolute Auto 700 /uL (0-900); Monocytes Percent Auto 6.8 % (3-14); Neutrophils Absolute Auto 5800 /uL (1500-7000); Neutrophils Percent Auto 59.4 % (50-75); Platelet Count 335 X10^3/uL (150-400); Red Blood Cell Count 4.48 X10^6/uL (4.0-5.2); Red Cell Distribution Width 12.3 % (11.6-14.8); White Blood Cell Count 9.7 X10^3/uL (4.5-11.0)
[2022-04-12 16:57] LABS: Alanine Aminotransferase 17 IU/L (<35); Albumin 3.8 g/dL (3.5-5.0); Albumin Globulin Ratio 1.2 (1.0-2.8); Alkaline Phosphatase 85 U/L (38-126); Aspartate Aminotransferase 25 IU/L (14-36); BUN Creatinine Ratio 6.8 (6-22); Bilirubin Total 0.4 mg/dL (0.2-1.3); Blood Urea Nitrogen 4 mg/dL (7-17); Calcium 9.6 mg/dL (8.4-10.2); Carbon Dioxide 30 mmol/L (22-32); Chloride 104 mmol/L (98-107); Cholesterol 155 mg/dL (140-199); Estimated Glomerular Filt Rate > 60 mL/min (>60); Globulin 3.3 g/dL (1.7-4.1); Glucose 68 mg/dL (70-100); HDL Cholesterol 50 mg/dL (40-60); HEMOLYSIS < 15 (0-50); LDL Cholesterol Calculated 85 mg/dL (<100); Sodium 138 mmol/L (137-145); Total Protein 7.1 g/dL (6.3-8.2); Triglycerides 102 mg/dL (35-150)
[2022-04-12 17:24] LABS: TSH w/ Reflex to FT4 1.94 uIU/mL (0.47-4.68)
== END ==
PROVIDERS: PCP Family Medicine; Referring Provider Family Medicine; Visit Provider Family Medicine
DX: R00.2 Palpitations (principal); E66.01 Morbid (severe) obesity due to excess calories; R07.89 Other chest pain
CPT/HCPCS: 36415; 80053; 80061; 83036; 84443; 85025

== ENCOUNTER → 2022-04-20 13:53 | Outpatient (CLI) | payer MEDICARE, MEDICAID, SELFPAY ==
[2019-07-29 08:35] VITALS: BMI 40.6
--- NOTE | 2022-05-18 10:40 | P.HOLT.S_ITS ---
Product Marketing Specialist Report Referral & Results Date Patient Seen: 04/20/22 Requesting provider: Caleb Montgomery Indication: Palpitations Duration of monitoring (days): 12 Diary information: There were 31 patient triggered events and 0 patient diary All the patient triggered events were variably associated with (within 45 seconds) sinus rhythm and PACs Data: Minimum heart rate identified was 52 beats per minute at 07:42 on 05/01/2022 Maximum sinus heart rate was 162 beats per minute at 20:34 on 05/01/2022 Less than 1% of identified beats were ventricular or supraventricular ectopic in origin, which would classify them as rare. There were no pauses of 3 seconds or longer or episodes atrial fibrillation or SVT identified on this study Impression: 11+ day laboratory monitor demonstrating rare PACs and PVCs. Based on patient events it appears sensation of palpitations are more likely than not associated with simple PACs No other significant dysrhythmias identified Clinical correlation suggested
== END ==
PROVIDERS: PCP Family Medicine; Referring Provider Family Medicine; Visit Provider Family Medicine
DX: E66.01 Morbid (severe) obesity due to excess calories (principal); R07.89 Other chest pain; R00.2 Palpitations
CPT/HCPCS: 93246; 93248

== ENCOUNTER 2022-11-20 16:47 | Emergency (ER) | payer MEDICARE, MEDICAID, SELFPAY ==
[2019-07-29 08:35] VITALS: BMI 40.6
[2022-11-20 17:03] VITALS: BP 169/81; PULSE 91; RESP 18; TEMP 37.1; O2SAT 98; BMI 40.7
--- NOTE | 2022-11-20 18:23 | PC.NURSE ---
patient called in ED main lobby, fast track lobby and surgery lobby with no answer.
--- NOTE | 2022-11-20 18:35 | PC.NURSE ---
patient called in main ED lobby, fast track lobby and surgery lobby waiting areas with no answer.
== END 2022-11-20 18:36 | disposition left against medical advice (07) ==
PROVIDERS: Emergency Provider Emergency Medicine; PCP Family Medicine
DX: K08.89 Other specified disorders of teeth and supporting structures (principal)
CPT/HCPCS: 99281

== ENCOUNTER 2023-03-20 17:47 | Emergency (ER) | payer MEDICARE, MEDICAID, SELFPAY ==
[2019-07-29 08:35] VITALS: BMI 40.6
[2023-03-20 17:53] VITALS: BP 180/92; PULSE 112; RESP 16; TEMP 36.6; O2SAT 96; BMI 46.9
[2023-03-20 18:04] VITALS: PULSE 105
--- NOTE | 2023-03-20 21:23 | PC.NURSE ---
small area on her left upper forearm that has a bruise. no redness around the site. capillary refill <2. skin warm and dry. patient denies a history of blood clots or DVTs.
== END 2023-03-20 21:20 | disposition left against medical advice (07) ==
PROVIDERS: Emergency Provider Emergency Medicine; PCP Family Medicine
DX: M79.602 Pain in left arm (principal)
CPT/HCPCS: 99281

== ENCOUNTER 2024-04-26 21:33 | Emergency (ER) | payer MEDICARE, SELFPAY ==
[2019-07-29 08:35] VITALS: BMI 40.6
[2024-04-26 21:35] VITALS: O2SAT 82
[2024-04-26 21:38] VITALS: BP 145/70; PULSE 104; RESP 17; TEMP 36.4; O2SAT 95; BMI 43.9
--- NOTE | 2024-04-26 21:43 | ED_ITS ---
HPI - General Adult General Chief complaint: Abdominal Pain Stated complaint: lt side lump, back and side px Time Seen by Provider: 04/26/24 21:38 Source: patient Mode of arrival: Ambulatory History of Present Illness HPI narrative: Patient is a 34-year-old female who is here for evaluation of a lump that she feels the left side of her abdomen. It was become painful. No change in bowel habits. No vomiting. No prior abdominal surgeries. No change in urinary symptoms. No skin changes. She was not tried anything for the symptoms prior to arrival. Related Data Home Medications Medication Instructions Recorded Confirmed No Known Home Medications 04/12/22 03/23/23 Allergies Allergy/AdvReac Type Severity Reaction Status Date / Time adhesive Allergy Intermediate Hives Verified 04/26/24 21:38 Penicillins [PENICILLINS] Allergy Unknown THROAT Verified 04/26/24 21:38 SWELLING - HIVES amoxicillin Allergy Swelling Verified 04/26/24 21:38 of Lip/Tongue/Throat Review of Systems Review of Systems Narrative: See HPI Patient History Medical History Bilateral plantar fasciitis Methamphetamine use Chest pain, atypical PTSD (post-traumatic stress disorder) (~2013) Anxiety (~2007) Developmental delay, mild (~1994) ADHD (~2007) Cystic fibrosis carrier GERD (gastroesophageal reflux disease) (~2008) Oral cancer (~2008) Cervical cancer (~2008) Bipolar disorder (~2007) Surgical History (Updated 11/21/21 @ 11:02 by Aime Lubin MD) H/O tubal ligation Status post D&C (~2017) Status post laparoscopic cholecystectomy (~2011) Status post delivery (03/30/11) Status post delivery (02/04/10) History of third molar tooth extraction Family History Father Colon cancer Congestive heart failure Mental health problem Heart disease Mother Mental health problem Brother Mental health problem Brother Mental health problem Grandmother No problems noted. Social History marital status: unmarried,living together household members: children pets and animals: Yes (Diesel) education level: high school occupational status: disabled current occupational exposures/hazards: Yes (lead paint) Smoking Status: Former smoker alcohol intake: never substance use type: marijuana Smoking Status: Former smoker alcohol intake frequency: other Exam Initial Vital Signs Initial Vital Signs: Vital Signs Pulse Oximetry 82 L 04/26/24 21:35 GI Other: Patient does a well-defined mass in the left upper abdomen that seems to be tender to palpation. No overlying skin changes. It was tender to palpation. Skin General: no rashes or lesions noted Course Orders Ordered: ED Orders 04/26/24 21:50 Complete Blood Count AUTO DIFF Stat Comprehensive Metabolic Panel Stat Lipase Stat Test Serum,Qual Stat 04/26/24 22:14 CT abdomen pelvis w con Stat Vital Signs Vital signs: Vital Signs - 8 hr 04/26/24 21:35 04/26/24 21:38 04/26/24 22:34 Temperature 97.5 F L Pulse Rate 104 H 77 Respiratory Rate 17 18 Blood Pressure 145/70 H 113/62 Pulse Oximetry 82 L 95 97 Oxygen Delivery Method Room Air Room Air Medical Decision Making Lab Data Lab results reviewed: Yes I reviewed the patient's lab results. 04/26/24 21:50 04/26/24 21:50 Labs: Lab Results 04/26/24 Range/Units 21:50 WBC 6.9 (4.5-11.0) X10^3/uL RBC 4.48 (4.0-5.2) X10^6/uL Hgb 13.7 (12.0-16.0) g/dL Hct 40.6 (36-46) % MCV 90.6 (80-100) fL MCH 30.5 (26-34) PG MCHC 33.7 (30-36) % RDW 12.6 (11.6-14.8) % Plt Count 242 (150-400) X10^3/uL Neut % (Auto) 60.0 (50-75) % Lymph % (Auto) 27.3 (25-40) % [place] % (Auto) 9.7 (3-14) % Eos % (Auto) 2.0 (2-4) % Baso % (Auto) 1.0 (0-2) % Neut # (Auto) 4100 (1688-1318) /uL Lymph # (Auto) 1900 (4368-7833) /uL [place] # (Auto) 700 (0-900) /uL Eos # (Auto) 100 (0-450) /uL Baso # (Auto) 100 (0-100) /uL Sodium 135 L (137-145) mmol/L Potassium 4.2 (3.4-5.1) mmol/L Chloride 104 (98-107) mmol/L Carbon Dioxide 27 (22-32) mmol/L BUN 15 (7-17) mg/dL Creatinine 0.70 (0.52-1.04) mg/dL Estimated GFR > 60 (>60) mL/min BUN/Creatinine Ratio 21.4 (6-22) Glucose 87 (70-100) mg/dL Calcium 9.5 (8.4-10.2) mg/dL Total Bilirubin 0.5 (0.2-1.3) mg/dL AST 25 (14-36) IU/L ALT 18 (<35) IU/L Alkaline Phosphatase 71 (38-126) U/L Total Protein 7.3 (6.3-8.2) g/dL Albumin 4.0 (3.5-5.0) g/dL Globulin 3.3 (1.7-4.1) g/dL Albumin/Globulin Ratio 1.2 (1.0-2.8) Lipase 104 (23-300) U/L Serum , Qual Negative (Negative) Imaging Data CT scan - abdomen/pelvis: Radiologist's Impression: PROCEDURE: CT ABDOMEN PELVIS W CON INDICATIONS: Left sided abdominal pain with mass felt on exam TECHNIQUE: After the administration of intravenous contrast, axial sections acquired from the lung bases to the pubic symphysis. Coronal and sagittal reformats were performed. For radiation dose reduction, the following was used: automated exposure control, adjustment of mA and/or kV according to patient size. COMPARISON: [facility], CT, CT ABDOMEN PELVIS W CON, 10/10/2020, 14:47. FINDINGS: Image quality: Diagnostic. Lower Chest: No significant findings. ABDOMEN: Liver: No solid mass. Gallbladder: Status post cholecystectomy Biliary ducts: No biliary dilation. Pancreas: No ductal dilation. Spleen: Size is within normal limits. Adrenal Glands: No adrenal nodules. Kidneys and Ureters: No hydronephrosis. No solid mass. No complex renal cystic lesion which requires follow up. Stomach and Bowel: Normal retrocecal appendix. Small bowel loops and stomach are Peritoneum: No abnormal intraperitoneal fluid. No free air. Ventral Wall: Small fat containing periumbilical hernia. Abdominal Nodes: No retroperitoneal or mesenteric adenopathy by size criteria. Vessels: Aorta and inferior vena cava are normal in size. PELVIS: Pelvic Organs: Unremarkable. Bladder: No bladder wall thickening, accounting for underdistention. Pelvic Nodes: No enlarged lymph nodes. Miscellaneous: No inguinal hernias are seen. Bones: No aggressive osseous abnormality. IMPRESSION: No acute abnormality identified in the abdomen or pelvis. No abdominal mass is seen. MDM Narrative Medical decision making narrative: Labs unremarkable and CT scan shows no acute intra-abdominal pathology. The mass located in the left part of the abdomen is most likely adipose tissue. Potentially even the start of a lipoma. Low suspicion for abscess. No fevers. No indication for antibiotics or emergent surgical consultation. Provided reassurance to the patient. Advised that she contact her primary doctor for a follow-up. She expressed understanding and agreement with the plan. Discharge Plan Departure Patient Disposition: Home Clinical Impression: Abdominal pain Instructions: DI for Abdominal Pain-Adult Activity Restrictions/Additional Instructions: Your workup here in the emergency department is very reassuring. There was no signs of any infection or surgical cause of your pain. You can take Tylenol and/or ibuprofen for for the discomfort. Contact your primary doctor for a follow-up. Prescriptions: No Action No Known Home Medications Referrals: Caleb Montgomery DO [Primary Care Provider] - Stand Alone Forms: Patient Portal/API/Survey
[2024-04-26 22:08] LABS: Add Manual Diff / Slide Review NO; Alanine Aminotransferase 18 IU/L (<35); Albumin Globulin Ratio 1.2 (1.0-2.8); Alkaline Phosphatase 71 U/L (38-126); Aspartate Aminotransferase 25 IU/L (14-36); BUN Creatinine Ratio 21.4 (6-22); Basophils Absolute Auto 100 /uL (0-100); Bilirubin Total 0.5 mg/dL (0.2-1.3); Blood Urea Nitrogen 15 mg/dL (7-17); Calcium 9.5 mg/dL (8.4-10.2); Carbon Dioxide 27 mmol/L (22-32); Chloride 104 mmol/L (98-107); Eosinophils Absolute Auto 100 /uL (0-450); Estimated Glomerular Filt Rate > 60 mL/min (>60); Globulin 3.3 g/dL (1.7-4.1); Glucose 87 mg/dL (70-100); HEMOLYSIS < 15 (0-50); Hematocrit 40.6 % (36-46); Hemoglobin 13.7 g/dL (12.0-16.0); Lipase 104 U/L (23-300); Lymphocytes Absolute Auto 1900 /uL (1100-4500); Lymphocytes Percent Auto 27.3 % (25-40); Mean Corpuscular HGB Conc 33.7 % (30-36); Mean Corpuscular Hemoglobin 30.5 PG (26-34); Mean Corpuscular Volume 90.6 fL (80-100); Monocytes Absolute Auto 700 /uL (0-900); Monocytes Percent Auto 9.7 % (3-14); Neutrophils Absolute Auto 4100 /uL (1500-7000); Platelet Count 242 X10^3/uL (150-400); Potassium 4.2 mmol/L (3.4-5.1); Red Blood Cell Count 4.48 X10^6/uL (4.0-5.2); Red Cell Distribution Width 12.6 % (11.6-14.8); Sodium 135 mmol/L (137-145); Total Protein 7.3 g/dL (6.3-8.2); White Blood Cell Count 6.9 X10^3/uL (4.5-11.0)
--- NOTE | 2024-04-26 22:14 | DI.CT.S_ITS ---
PROCEDURE: CT ABDOMEN PELVIS W CON INDICATIONS: Left sided abdominal pain with mass felt on exam TECHNIQUE: After the administration of intravenous contrast, axial sections acquired from the lung bases to the pubic symphysis. Coronal and sagittal reformats were performed. For radiation dose reduction, the following was used: automated exposure control, adjustment of mA and/or kV according to patient size. COMPARISON: [facility], CT, CT ABDOMEN PELVIS W CON, 10/10/2020, 14:47. FINDINGS: Image quality: Diagnostic. Lower Chest: No significant findings. ABDOMEN: Liver: No solid mass. Gallbladder: Status post cholecystectomy Biliary ducts: No biliary dilation. Pancreas: No ductal dilation. Spleen: Size is within normal limits. Adrenal Glands: No adrenal nodules. Kidneys and Ureters: No hydronephrosis. No solid mass. No complex renal cystic lesion which requires follow up. Stomach and Bowel: Normal retrocecal appendix. Small bowel loops and stomach are Peritoneum: No abnormal intraperitoneal fluid. No free air. Ventral Wall: Small fat containing periumbilical hernia. Abdominal Nodes: No retroperitoneal or mesenteric adenopathy by size criteria. Vessels: Aorta and inferior vena cava are normal in size. PELVIS: Pelvic Organs: Unremarkable. Bladder: No bladder wall thickening, accounting for underdistention. Pelvic Nodes: No enlarged lymph nodes. Miscellaneous: No inguinal hernias are seen. Bones: No aggressive osseous abnormality. IMPRESSION: No acute abnormality identified in the abdomen or pelvis. No abdominal mass is seen. Approved by: Marcos Cox M.D. on 04/26/2024 at 22:25
[2024-04-26 22:20] LABS: Pregnancy Test Serum,Qual Negative (Negative)
[2024-04-26 22:34] VITALS: BP 113/62; PULSE 77; RESP 18; O2SAT 97
== END 2024-04-26 22:37 | disposition home or self-care (01) ==
PROVIDERS: Emergency Provider Emergency Medicine; PCP Family Medicine
DX: R10.9 Unspecified abdominal pain (principal); R19.00 Intra-abdominal and pelvic swelling, mass and lump, unspecified site
CPT/HCPCS: 36415; 74177; 80053; 83690; 84703; 85025; 99283; 99284; Q9967

== ENCOUNTER → 2024-06-02 10:07 | Outpatient (CLI) | payer MEDICARE, MEDICAID, SELFPAY ==
[2019-07-29 08:35] VITALS: BMI 40.6
[2024-06-02 10:54] LABS: Add Manual Diff / Slide Review NO; Basophils Absolute Auto 100 /uL (0-100); Basophils Percent Auto 0.9 % (0-2); Eosinophils Absolute Auto 200 /uL (0-450); Eosinophils Percent Auto 2.6 % (2-4); Hemoglobin 14.1 g/dL (12.0-16.0); Lymphocytes Absolute Auto 2100 /uL (1100-4500); Lymphocytes Percent Auto 22.2 % (25-40); Mean Corpuscular HGB Conc 33.6 % (30-36); Mean Corpuscular Hemoglobin 30.1 PG (26-34); Mean Corpuscular Volume 89.6 fL (80-100); Monocytes Absolute Auto 600 /uL (0-900); Monocytes Percent Auto 6.6 % (3-14); Neutrophils Absolute Auto 6500 /uL (1500-7000); Neutrophils Percent Auto 67.7 % (50-75); Platelet Count 339 X10^3/uL (150-400); Red Blood Cell Count 4.69 X10^6/uL (4.0-5.2); Red Cell Distribution Width 12.5 % (11.6-14.8); White Blood Cell Count 9.6 X10^3/uL (4.5-11.0)
[2024-06-02 11:04] LABS: Hemoglobin A1C% w Est Avg Glu 4.8 % (4.0-6.0)
[2024-06-02 11:06] LABS: Alanine Aminotransferase 15 IU/L (<35); Albumin 4.4 g/dL (3.5-5.0); Albumin Globulin Ratio 1.4 (1.0-2.8); Alkaline Phosphatase 87 U/L (38-126); Aspartate Aminotransferase 23 IU/L (14-36); BUN Creatinine Ratio 14.9 (6-22); Bilirubin Total 0.5 mg/dL (0.2-1.3); Blood Urea Nitrogen 10 mg/dL (7-17); Calcium 9.7 mg/dL (8.4-10.2); Carbon Dioxide 25 mmol/L (22-32); Chloride 107 mmol/L (98-107); Estimated Glomerular Filt Rate > 60 mL/min (>60); Globulin 3.1 g/dL (1.7-4.1); Glucose 88 mg/dL (70-100); HEMOLYSIS < 15 (0-50); Potassium 4.7 mmol/L (3.4-5.1); Sodium 138 mmol/L (137-145); Total Protein 7.5 g/dL (6.3-8.2)
[2024-06-02 11:07] LABS: HEMOLYSIS < 15 (0-50); Iron 64 ug/dL (37-170)
[2024-06-02 11:18] LABS: Percent Iron Saturation 24 % (15-50); Total Iron Binding Capacity 262 ug/dL (265-497); Transferrin 227 mg/dL (206-381)
[2024-06-02 11:38] LABS: Thyroid Stimulating Hormone 1.68 uIU/mL (0.47-4.68)
[2024-06-02 11:42] LABS: Ferritin 52 ng/mL (6-137)
== END ==
PROVIDERS: PCP Student in an Organized Health Care Education/Training Program; Referring Provider Student in an Organized Health Care Education/Training Program; Visit Provider Student in an Organized Health Care Education/Training Program
DX: L65.9 Nonscarring hair loss, unspecified (principal)
CPT/HCPCS: 36415; 80053; 82728; 83036; 83540; 83550; 84443; 85025

== ENCOUNTER 2024-07-09 20:05 | Emergency (ER) | payer MEDICARE, MEDICAID, SELFPAY ==
[2019-07-29 08:35] VITALS: BMI 40.6
[2024-07-09 20:11] VITALS: BP 104/66; PULSE 77; RESP 18; TEMP 36.2; O2SAT 98; BMI 44.9
[2024-07-09 20:15] VITALS: BP 111/73; PULSE 78; O2SAT 98
[2024-07-09 21:01] VITALS: BP 130/79; PULSE 76; O2SAT 99
[2024-07-09 21:30] VITALS: BP 98/50; PULSE 77; O2SAT 96
[2024-07-09 22:00] VITALS: BP 100/51; PULSE 76; O2SAT 97
--- NOTE | 2024-07-09 22:39 | ED.GENADULT ---
HPI - General Adult General Chief complaint: Syncope Stated complaint: near syncope Time Seen by Provider: 07/09/24 20:49 Source: patient Mode of arrival: EMS History of Present Illness HPI narrative: 34-year-old woman with a history of ADHD, PTSD, mild developmental delay, prior history of methamphetamine use notes that her daughter was recently tested positive for influenza and was having mild hemoptysis presents today complaining of fever, malaise and near-syncope. Patient states that she has been trying to hydrate but did have some diarrhea earlier today. Nausea but no vomiting. Related Data Previous Rx's Medication Instructions Recorded cyclobenzaprine 5 mg tablet 5 mg PO BEDTIME PRN muscle spasm 06/02/24 #30 tabs famotidine 20 mg tablet 20 mg PO BEDTIME #90 tabs 06/02/24 oseltamivir 75 mg capsule (Tamiflu) 75 mg PO BID 5 days #10 caps 07/07/24 polyethylene glycol 3350 17 17 g PO BID #850 grams 07/09/24 gram/dose oral powder (Miralax) Allergies Allergy/AdvReac Type Severity Reaction Status Date / Time adhesive Allergy Intermediate Hives Verified 07/07/24 15:37 Penicillins [PENICILLINS] Allergy Unknown THROAT Verified 07/07/24 15:37 SWELLING - HIVES amoxicillin Allergy Swelling Verified 07/07/24 15:37 of Lip/Tongue/Throat Review of Systems Review of Systems Narrative: Pertinent positive and negative findings as per HPI Patient History Medical History (Updated 07/09/24 @ 22:46 by Porsha Snyder MD) ADHD (~2007) Bilateral plantar fasciitis Methamphetamine use Chest pain, atypical PTSD (post-traumatic stress disorder) (~2013) Anxiety (~2007) Developmental delay, mild (~1994) Cystic fibrosis carrier GERD (gastroesophageal reflux disease) (~2008) Oral cancer (~2008) Cervical cancer (~2008) Bipolar disorder (~2007) Surgical History (Updated 11/21/21 @ 11:02 by Aime Lubin MD) H/O tubal ligation Status post D&C (~2017) Status post laparoscopic cholecystectomy (~2011) Status post delivery (03/30/11) Status post delivery (02/04/10) History of third molar tooth extraction Family History Father Colon cancer Congestive heart failure Mental health problem Heart disease Mother Mental health problem Brother Mental health problem Brother Mental health problem Grandmother No problems noted. Social History marital status: unmarried,living together household members: children pets and animals: Yes (Diesel) education level: high school occupational status: disabled current occupational exposures/hazards: Yes (lead paint) Smoking Status: Former smoker alcohol intake: never substance use type: marijuana Smoking Status: Former smoker alcohol intake frequency: other Exam Initial Vital Signs Initial Vital Signs: Vital Signs Temperature 97.2 F L 07/09/24 20:11 Pulse Rate 77 07/09/24 20:11 Respiratory Rate 18 07/09/24 20:11 Blood Pressure 104/66 07/09/24 20:11 Pulse Oximetry 98 07/09/24 20:11 Oxygen Delivery Method Room Air 07/09/24 20:11 General: appears to feel unwell but she is not acutely toxic, she is able to speak in full sentences HEENT: Moist mucous membranes, normal sclera with reactive pupils, Respiratory: coughing but no rhonchi or wheeze heard in the lungs. No accessory muscle use Cardiac: Regular rate and rhythm no murmurs no bruits Abdomen: Soft, nontender, good bowel tones, no flank pain Neurologic: Grossly neurologically intact with no obvious asymmetries or abnormalities Extremities: No trauma, well perfused Psych: Cooperative, appropriate insight and affect Course Vital Signs Vital signs: Vital Signs - 8 hr 07/09/24 20:11 07/09/24 20:15 07/09/24 21:01 Temperature 97.2 F L Pulse Rate 77 78 76 Respiratory Rate 18 Blood Pressure 104/66 111/73 130/79 Pulse Oximetry 98 98 99 Oxygen Delivery Method Room Air 07/09/24 21:30 07/09/24 22:00 Temperature Pulse Rate 77 76 Respiratory Rate Blood Pressure 98/50 L 100/51 L Pulse Oximetry 96 97 Oxygen Delivery Method Medical Decision Making MDM Narrative Medical decision making narrative: 34-year-old woman testing positive for influenza a, dizzy near-syncope. Minor diarrhea earlier today nauseated but no vomiting. Notes that multiple family members have similar symptoms. Her exam looks like she does not feel well but is otherwise benign. No signs of secondary cardiac issues or bacterial pneumonia. Discussed anticipated course of recovery, need for rest, Tylenol and ibuprofen to help needed and maintaining hydration. She is safe for discharge Discharge Plan Departure Patient Disposition: Home Clinical Impression: Influenza Instructions: DI for Influenza -- Adult Activity Restrictions/Additional Instructions: thank you for coming in today. You have the flu. I have been seeing multiple people with the flu all complaining of significant dizziness. I suspect that is the source of your near-syncope. You were given a L of fluid in the emergency Department using ibuprofen and Tylenol can help with the fevers and body aches. Please make sure that you are keeping yourself well hydrated. If you find that you are getting worse or develop any new symptoms, please feel free to return to the emergency department for further evaluation. Prescriptions: No Action famotidine 20 mg tablet 20 mg PO BEDTIME Qty: 90 3RF cyclobenzaprine 5 mg tablet 5 mg PO BEDTIME PRN (Reason: muscle spasm) Qty: 30 0RF oseltamivir [Tamiflu] 75 mg capsule 75 mg PO BID 5 Days Qty: 10 0RF polyethylene glycol 3350 [Miralax] 17 gram/dose powder 17 g PO BID Qty: 850 3RF Referrals: Coretta Navarrete MD [Primary Care Provider] - Stand Alone Forms: Patient Portal/API/Survey
[2024-07-09 22:57] VITALS: BP 118/72; PULSE 79; RESP 16; TEMP 36.8; O2SAT 99
== END 2024-07-09 23:06 | disposition home or self-care (01) ==
PROVIDERS: Emergency Provider Emergency Medicine; PCP Student in an Organized Health Care Education/Training Program
DX: J11.1 Influenza due to unidentified influenza virus with other respiratory manifestations (principal); R04.2 Hemoptysis; R55 Syncope and collapse; Z87.891 Personal history of nicotine dependence
CPT/HCPCS: 99281

== ENCOUNTER 2024-07-30 06:59 | Emergency (ER) | payer MEDICARE, MEDICAID, SELFPAY ==
[2019-07-29 08:35] VITALS: BMI 40.6
[2024-07-30 07:01] VITALS: O2SAT 99
--- NOTE | 2024-07-30 07:02 | DI.CT.S_ITS ---
PROCEDURE: CT ANGIO CHEST PE PROTOCOL INDICATIONS: Chest pain dyspnea TECHNIQUE: After the administration of intravenous contrast, 2 mm thick sections acquired from the pulmonary apices to the posterior costophrenic angles. 3-dimensional maximum intensity projection (MIP) coronal and sagittal reformats were then acquired through the thorax. For radiation dose reduction, the following was used: automated exposure control, adjustment of mA and/or kV according to patient size. COMPARISON: None. FINDINGS: Image quality: Diagnostic. Pulmonary arteries: Pulmonary arteries are normal in size, and demonstrate no intraluminal filling defects to suggest central pulmonary embolism. Lower Neck: No enlarged lymph nodes. Thyroid: No thyroid nodules which require sonographic follow up, per consensus guidelines. Axillae: No enlarged lymph nodes. Chest Wall: Unremarkable. Bones: Unremarkable. Lungs and Pleura: No pneumothorax or pleural effusions. No consolidation or suspicious nodules. Heart: Heart size is normal. No pericardial effusion. Thoracic Vessels: No aortic aneurysm. Mediastinum and Gladys: No enlarged lymph nodes. Esophagus: No wall thickening. No hiatal hernia. Upper Abdomen: Visualized upper abdomen solid organs and bowel loops appear normal. IMPRESSION: No pulmonary embolus. No acute cardiopulmonary process. Dictated by: Mahesh Coronel M.D. on 07/30/2024 at 8:15 Approved by: Mahesh Coronel M.D. on 07/30/2024 at 8:18
--- NOTE | 2024-07-30 07:02 | DI.CT.S_ITS ---
PROCEDURE: CT ABDOMEN PELVIS W CON INDICATIONS: IV contrast only/Right side pain TECHNIQUE: After the administration of intravenous contrast, axial sections acquired from the lung bases to the pubic symphysis. Coronal and sagittal reformats were performed. For radiation dose reduction, the following was used: automated exposure control, adjustment of mA and/or kV according to patient size. COMPARISON: [facility], CT, CT ABDOMEN PELVIS W CON, 04/26/2024, 21:45. FINDINGS: Image quality: Diagnostic. Lower Chest: No significant findings. ABDOMEN: Liver: No solid mass. Gallbladder: Absent Biliary ducts: No biliary dilation. Pancreas: No ductal dilation. Spleen: Size is within normal limits. Adrenal Glands: No adrenal nodules. Kidneys and Ureters: No hydronephrosis. No solid mass. No complex renal cystic lesion which requires follow up. Stomach and Bowel: Normal colonic caliber, without significant wall thickening. Normal gas containing appendix. Peritoneum: No abnormal intraperitoneal fluid. No free air. Ventral Wall: No significant ventral hernia. Abdominal Nodes: No retroperitoneal or mesenteric adenopathy by size criteria. Vessels: Aorta and inferior vena cava are normal in size. PELVIS: Pelvic Organs: Bilateral prominent adnexa, left greater than right. Bladder: No bladder wall thickening, accounting for underdistention. Pelvic Nodes: No enlarged lymph nodes. Miscellaneous: No inguinal hernias are seen. Bones: No aggressive osseous abnormality. IMPRESSION: 1. Prominent bilateral adnexae, left greater than right. 2. Normal appendix. 3. Remote cholecystectomy. Dictated by: Mahesh Coronel M.D. on 07/30/2024 at 8:18 Approved by: Mahesh Coronel M.D. on 07/30/2024 at 8:20
[2024-07-30 07:04] VITALS: PULSE 84; O2SAT 99
--- NOTE | 2024-07-30 07:05 | ED.BACK ---
HPI - Back Pain/Injury General Chief Complaint: Back Pain/Injury Stated Complaint: back pain Time Seen by Provider: 07/30/24 07:02 History of Present Illness HPI Narrative: Patient brought in by ambulance for right flank right side mid back pain. Does not radiate. No abdominal pain no chest pain. No nausea or vomiting fever chills cough cold or congestion or shortness of breath. No urinary complaints no dysuria frequency or hematuria. Patient states for the past year she has had tingling to the right mid back area where she hurts. However in the last 3 days she has had pain. She was given muscle relaxers without relief. Patient does have history of being treated for pyelonephritis and UTI in the past. Related Data Previous Rx's Medication Instructions Recorded cyclobenzaprine 5 mg tablet 5 mg PO BEDTIME PRN muscle spasm 06/02/24 #30 tabs famotidine 20 mg tablet 20 mg PO BEDTIME #90 tabs 06/02/24 polyethylene glycol 3350 17 17 g PO BID #850 grams 07/09/24 gram/dose oral powder (Miralax) baclofen 20 mg tablet 20 mg PO TID PRN pain (scale score 07/30/24 4-6) #20 tabs methylprednisolone 4 mg tablets in See Rx Instructions PO .COMPLEX 07/30/24 a dose pack (Medrol (Johnathan)) #21 ea Allergies Allergy/AdvReac Type Severity Reaction Status Date / Time adhesive Allergy Intermediate Hives Verified 07/30/24 07:13 Penicillins [PENICILLINS] Allergy Unknown THROAT Verified 07/30/24 07:13 SWELLING - HIVES amoxicillin Allergy Swelling Verified 07/30/24 07:13 of Lip/Tongue/Throat Review of Systems Review of Systems Narrative: GENERAL: Negative chills, fatigue, malaise, fever, sweats. HEENT: Negative sinus pain, ear pain, sore throat RESPIRATORY: Negative dyspnea, cough CARDIOVASCULAR: Negative chest pain, palpitations GASTROINTESTINAL: Negative vomiting, nausea, abdominal pain, positive flank pain : Negative dysuria, frequency, hematuria MUSCULOSKELETAL: Negative muscle or bony pain SKIN: Negative rash, skin lesions NEUROLOGIC: Negative weakness, numbness ROS Unobtainable: All systems reviewed & are unremarkable except as noted in HPI and below Patient History Medical History (Updated 07/30/24 @ 09:07 by Wesley Braden MD) ADHD (~2007) Bilateral plantar fasciitis Methamphetamine use Chest pain, atypical PTSD (post-traumatic stress disorder) (~2013) Anxiety (~2007) Developmental delay, mild (~1994) Cystic fibrosis carrier GERD (gastroesophageal reflux disease) (~2008) Oral cancer (~2008) Cervical cancer (~2008) Bipolar disorder (~2007) Surgical History (Updated 11/21/21 @ 11:02 by Aime Lubin MD) H/O tubal ligation Status post D&C (~2017) Status post laparoscopic cholecystectomy (~2011) Status post delivery (03/30/11) Status post delivery (02/04/10) History of third molar tooth extraction Family History Father Colon cancer Congestive heart failure Mental health problem Heart disease Mother Mental health problem Brother Mental health problem Brother Mental health problem Grandmother No problems noted. Social History marital status: unmarried,living together household members: children pets and animals: Yes (Diesel) education level: high school occupational status: disabled current occupational exposures/hazards: Yes (lead paint) Smoking Status: Former smoker alcohol intake: never substance use type: marijuana Smoking Status: Former smoker alcohol intake frequency: other Exam Narrative Exam Narrative: GENERAL: in no distress, not toxic not dyspneic HEAD: Normocephalic. EYES: Pupils equal round ENT: Mucous membranes moist. NECK: Trachea midline. CARDIOVASCULAR: Regular rate and rhythm RESPIRATORY: Clear to auscultation. Breath sounds equal bilaterally. No wheezes, rales, or rhonchi. GASTROINTESTINAL: Abdomen soft, non-tender no McBurney point tenderness no Barbour sign, abdomen is soft nontender no peritoneal signs bowel sounds are present. No guarding or rebound EXTREMITIES: No gross deformities. BACK: There is right CVA tenderness no rash. There is muscle spasm to the right infra scapular muscle area. No midline tenderness or step-off of the cervical thoracic or lumbar spine. NEURO: AOx4. Clear speech SKIN: Warm and dry PSYCH: Not anxious, is cooperative Initial Vital Signs Initial Vital Signs: Vital Signs Pulse Oximetry 99 07/30/24 07:01 Course Orders Ordered: ED Orders 07/30/24 07:02 CT abdomen pelvis w con Stat CT angio chest PE protocol Stat 07/30/24 07:20 CBC Auto Diff [Complete Blood Count AUTO DIFF] Stat CMP [Comprehensive Metabolic Panel] Stat Lipase Stat Test Serum,Qual Stat Urinalysis and Microscopic Stat Discontinued Medications Hydromorphone HCl (Hydromorphone 1 Mg Inj) 1 mg IV NOW ONE Stop: 07/30/24 07:03 Last Admin: 07/30/24 07:32 Dose: 1 mg Documented By: CHA Ketorolac Tromethamine (Ketorolac 30 Mg/Ml Vial) 15 mg IV NOW ONE Stop: 07/30/24 07:03 Last Admin: 07/30/24 07:32 Dose: 15 mg Documented By: CHA Ondansetron HCl (Ondansetron 4 Mg/2 Ml Inj) 4 mg IV NOW ONE Stop: 07/30/24 07:03 Last Admin: 07/30/24 07:32 Dose: 4 mg Documented By: CHA Sodium Chloride (Sodium Chloride 0.9% Flush) 50 ml IV NOW ONE Stop: 07/30/24 07:03 Last Admin: 07/30/24 08:10 Dose: 50 ml Documented By: CHA Vital Signs Vital signs: Vital Signs - 8 hr 07/30/24 07:01 07/30/24 07:04 07/30/24 07:06 Temperature Pulse Rate 84 Respiratory Rate Blood Pressure 136/77 Pulse Oximetry 99 99 Oxygen Delivery Method 07/30/24 07:10 07/30/24 09:01 07/30/24 09:02 Temperature 98.6 F Pulse Rate 89 75 Respiratory Rate 18 Blood Pressure 136/77 136/73 Pulse Oximetry 99 Oxygen Delivery Method Room Air 07/30/24 09:02 Temperature Pulse Rate 75 Respiratory Rate Blood Pressure Pulse Oximetry 99 Oxygen Delivery Method MDM - Back Pain/Injury Lab Data 07/30/24 07:20 07/30/24 07:20 Labs: Lab Results 07/30/24 Range/Units 07:20 WBC 11.4 H (4.5-11.0) X10^3/uL RBC 4.05 (4.0-5.2) X10^6/uL Hgb 12.0 (12.0-16.0) g/dL Hct 35.2 L (36-46) % MCV 86.8 (80-100) fL MCH 29.5 (26-34) PG MCHC 34.0 (30-36) % RDW 13.0 (11.6-14.8) % Plt Count 318 (150-400) X10^3/uL Neut % (Auto) 61.1 (50-75) % Lymph % (Auto) 25.8 (25-40) % [place] % (Auto) 9.4 (3-14) % Eos % (Auto) 2.7 (2-4) % Baso % (Auto) 1.0 (0-2) % Neut # (Auto) 6900 (9959-8792) /uL Lymph # (Auto) 2900 (3658-9911) /uL [place] # (Auto) 1100 H (0-900) /uL Eos # (Auto) 300 (0-450) /uL Baso # (Auto) 100 (0-100) /uL Sodium 138 (137-145) mmol/L Potassium 3.7 (3.4-5.1) mmol/L Chloride 105 (98-107) mmol/L Carbon Dioxide 24 (22-32) mmol/L BUN 13 (7-17) mg/dL Creatinine 0.66 (0.52-1.04) mg/dL Estimated GFR > 60 (>60) mL/min BUN/Creatinine Ratio 19.7 (6-22) Glucose 106 H (70-100) mg/dL Calcium 9.6 (8.4-10.2) mg/dL Total Bilirubin 0.6 (0.2-1.3) mg/dL AST 25 (14-36) IU/L ALT 18 (<35) IU/L Alkaline Phosphatase 93 (38-126) U/L Total Protein 7.7 (6.3-8.2) g/dL Albumin 4.2 (3.5-5.0) g/dL Globulin 3.5 (1.7-4.1) g/dL Albumin/Globulin Ratio 1.2 (1.0-2.8) Lipase 95 (23-300) U/L Serum , Qual Negative (Negative) Urine Color Yellow Urine Appearance Clear Urine pH 6.0 (4.5-8.0) Ur Specific [place] 1.025 (1.000-1.035) Urine Protein Negative (Negative) Urine Glucose (UA) Negative (Negative) g/dL Urine Ketones Negative (NEGATIVE) Urine Occult Blood 3+ H (Negative) Urine Nitrate Negative (Negative) Urine Bilirubin Negative (NEGATIVE) Urine Urobilinogen 0.2 (0.2) E.U./dL Ur Leukocyte Esterase Negative (NEGATIVE) Urine RBC 1-5/hpf (0-5/HPF) Urine WBC None seen (0-5/HPF) Ur Squamous Epith Cells 10-30 /hpf H D (0-5/HPF) Urine Bacteria None seen (None) Ur Culture Indicated? Cult not indicated Vol Urine Centrifuged 10ml (spun) Imaging Data CT scan - chest: Radiologist's Impression: [place] [address] CT Scan Report Signed Patient: Belkis Coello MR#: [id number] : 1990 Acct:[id number] Age/Sex: 34 / F Date of Service: 07/30/24 Loc: ED Accession Number: [id number] Procedure: CT angio chest PE protocol Ordering Provider: Wesley Braden MD PROCEDURE: CT ANGIO CHEST PE PROTOCOL INDICATIONS: Chest pain dyspnea TECHNIQUE: After the administration of intravenous contrast, 2 mm thick sections acquired from the pulmonary apices to the posterior costophrenic angles. 3-dimensional maximum intensity projection (MIP) coronal and sagittal reformats were then acquired through the thorax. For radiation dose reduction, the following was used: automated exposure control, adjustment of mA and/or kV according to patient size. COMPARISON: None. FINDINGS: Image quality: Diagnostic. Pulmonary arteries: Pulmonary arteries are normal in size, and demonstrate no intraluminal filling defects to suggest central pulmonary embolism. Lower Neck: No enlarged lymph nodes. Thyroid: No thyroid nodules which require sonographic follow up, per consensus guidelines. Axillae: No enlarged lymph nodes. Chest Wall: Unremarkable. Bones: Unremarkable. Lungs and Pleura: No pneumothorax or pleural effusions. No consolidation or suspicious nodules. Heart: Heart size is normal. No pericardial effusion. Thoracic Vessels: No aortic aneurysm. Mediastinum and Gladys: No enlarged lymph nodes. Esophagus: No wall thickening. No hiatal hernia. Upper Abdomen: Visualized upper abdomen solid organs and bowel loops appear normal. IMPRESSION: No pulmonary embolus. No acute cardiopulmonary process. Dictated by: Mahesh Coronel M.D. on 07/30/2024 at 8:15 Approved by: Mahesh Coronel M.D. on 07/30/2024 at 8:18 CT scan - abdomen/pelvis: Radiologist's Impression: [address] [address] [address] Scan Report Signed Patient: Belkis Coello MR#: [id number] : 1990 Acct:[id number] Age/Sex: 34 / F Date of Service: 07/30/24 Loc: ED Accession Number: [id number] Procedure: CT abdomen pelvis w con Ordering Provider: Wesley Braden MD PROCEDURE: CT ABDOMEN PELVIS W CON INDICATIONS: IV contrast only/Right side pain TECHNIQUE: After the administration of intravenous contrast, axial sections acquired from the lung bases to the pubic symphysis. Coronal and sagittal reformats were performed. For radiation dose reduction, the following was used: automated exposure control, adjustment of mA and/or kV according to patient size. COMPARISON: [facility], CT, CT ABDOMEN PELVIS W CON, 04/26/2024, 21:45. FINDINGS: Image quality: Diagnostic. Lower Chest: No significant findings. ABDOMEN: Liver: No solid mass. Gallbladder: Absent Biliary ducts: No biliary dilation. Pancreas: No ductal dilation. Spleen: Size is within normal limits. Adrenal Glands: No adrenal nodules. Kidneys and Ureters: No hydronephrosis. No solid mass. No complex renal cystic lesion which requires follow up. Stomach and Bowel: Normal colonic caliber, without significant wall thickening. Normal gas containing appendix. Peritoneum: No abnormal intraperitoneal fluid. No free air. Ventral Wall: No significant ventral hernia. Abdominal Nodes: No retroperitoneal or mesenteric adenopathy by size criteria. Vessels: Aorta and inferior vena cava are normal in size. PELVIS: Pelvic Organs: Bilateral prominent adnexa, left greater than right. Bladder: No bladder wall thickening, accounting for underdistention. Pelvic Nodes: No enlarged lymph nodes. Miscellaneous: No inguinal hernias are seen. Bones: No aggressive osseous abnormality. IMPRESSION: 1. Prominent bilateral adnexae, left greater than right. 2. Normal appendix. 3. Remote cholecystectomy. Dictated by: Mahesh Coronel M.D. on 07/30/2024 at 8:18 Approved by: Mahesh Coronel M.D. on 07/30/2024 at 8:20 [facility] Narrative Medical decision making narrative: Patient brought in by ambulance for right flank right side mid back pain. Does not radiate. No abdominal pain no chest pain. No nausea or vomiting fever chills cough cold or congestion or shortness of breath. No urinary complaints no dysuria frequency or hematuria. Patient states for the past year she has had tingling to the right mid back area where she hurts. However in the last 3 days she has had pain. She was given muscle relaxers without relief. Patient does have history of being treated for pyelonephritis and UTI in the past. After history and exam, CBC CMP urinalysis test Toradol Dilaudid Zofran CT chest CT abdomen pelvis [facility] Medical records reviewed: January 24, 2020 ER visit here for pyelonephritis Differential considered: Includes but not limited to pyelonephritis pulmonary embolism cholelithiasis cholecystitis kidney stone pneumonia thoracic strain Lab Test results independently reviewed as above. Pertinent findings: WBC 11.4 AST 25 ALT 18 negative test urinalysis 3+ blood negative ketones negative nitrate negative leukocyte esterase Imaging studies independently reviewed: CT chest CT abdomen pelvis no acute finding Consultations: None indicated at this time. Treatments: Toradol Dilaudid Zofran Re-evaluations: 9:08 a.m.. Patient feeling much better. Able to sit back on her bed. Patient has been on the phone numerous times while here. Reviewed results with patient. Likely radiculopathy from the thoracic spine causing muscle spasm to the right side. She will discontinue the Flexeril from primary care. She has appointment next week for physical therapy provided by her family doctor. She understands will likely need MRI of the thoracic spine outpatient basis with primary care. Return precautions reviewed. Prescription for Medrol Dosepak and baclofen will be provided. . Discussion: Appropriate for discharge home. Exam is reassuring. Return precautions reviewed patient. No neuro deficits. Pain controlled. She desires discharge home. Diagnosis: Back muscle spasm Discharge Plan Departure Patient Disposition: Home Clinical Impression: Muscle spasm, Acute mid back pain Instructions: DI for Back Spasm, DI for Thoracic Back Pain Activity Restrictions/Additional Instructions: No driving operating machinery today. You have been given pain medication through the IV. Please discontinue the prescription for your family doctor. New prescription has been sent to your pharmacy to pick up worker today. You will need to start your physical therapy as scheduled next week by your primary care provider. You may need outpatient MRI of your back/spine with your family doctor. Return if worse if any questions or concerns. Prescriptions: New baclofen 20 mg tablet 20 mg PO TID PRN (Reason: pain (scale score 4-6)) Qty: 20 0RF methylprednisolone [Medrol (Johnathan)] 4 mg tablets,dose pack See Rx Instructions .ROUTE .COMPLEX Qty: 21 0RF Rx Instructions: orally per package directions No Action famotidine 20 mg tablet 20 mg PO BEDTIME Qty: 90 3RF cyclobenzaprine 5 mg tablet 5 mg PO BEDTIME PRN (Reason: muscle spasm) Qty: 30 0RF polyethylene glycol 3350 [Miralax] 17 gram/dose powder 17 g PO BID Qty: 850 3RF Referrals: Coretta Navarrete MD [Primary Care Provider] - Stand Alone Forms: Patient Portal/API/Survey
[2024-07-30 07:06] VITALS: BP 136/77
[2024-07-30 07:10] VITALS: BP 136/77; PULSE 89; RESP 18; TEMP 37; O2SAT 99; BMI 45.1
[2024-07-30] MEDS: HYDROMORPHONE 1 MG INJ IV (07:32)
[2024-07-30] MEDS: ONDANSETRON 4 MG/2 ML INJ IV (07:32)
[2024-07-30] MEDS: KETOROLAC 30 MG/ML VIAL 15 MG IV (07:32)
[2024-07-30 07:46] LABS: Appearance Urine UA CLEAR; Bilirubin Urine UA NEGATIVE (NEGATIVE); Color Urine UA YELLOW; Glucose Urine UA NEGATIVE (Negative); Ketones Urine UA NEGATIVE (NEGATIVE); Leukocyte Esterase Urine UA NEGATIVE (NEGATIVE); Nitrite Urine UA NEGATIVE (Negative); Occult Blood Urine UA 3+ (Negative); Protein Urine UA NEGATIVE (Negative); Specific Gravity Urine UA 1.025 (1.000-1.035); Urobilinogen Urine UA 0.2 E.U./dL (0.2)
[2024-07-30 07:50] LABS: Add Manual Diff / Slide Review NO; Basophils Absolute Auto 100 /uL (0-100); Eosinophils Absolute Auto 300 /uL (0-450); Eosinophils Percent Auto 2.7 % (2-4); Hematocrit 35.2 % (36-46); Lymphocytes Absolute Auto 2900 /uL (1100-4500); Lymphocytes Percent Auto 25.8 % (25-40); Mean Corpuscular Hemoglobin 29.5 PG (26-34); Mean Corpuscular Volume 86.8 fL (80-100); Monocytes Absolute Auto 1100 /uL (0-900); Monocytes Percent Auto 9.4 % (3-14); Neutrophils Absolute Auto 6900 /uL (1500-7000); Neutrophils Percent Auto 61.1 % (50-75); Platelet Count 318 X10^3/uL (150-400); Red Blood Cell Count 4.05 X10^6/uL (4.0-5.2); White Blood Cell Count 11.4 X10^3/uL (4.5-11.0)
[2024-07-30 07:57] LABS: Urine Volume 10mL (spun)
[2024-07-30 07:58] LABS: Bacteria Urine None Seen; Culture Indicated Urine Cult Not Indicated; RBC Urine 1-5/HPF (0-5/HPF); Squamous Epithelial Cell Urine 10-30 /HPF (0-5/HPF); WBC Urine None Seen (0-5/HPF)
[2024-07-30 08:00] LABS: Pregnancy Test Serum,Qual Negative (Negative)
[2024-07-30 08:04] LABS: Alanine Aminotransferase 18 IU/L (<35); Albumin 4.2 g/dL (3.5-5.0); Albumin Globulin Ratio 1.2 (1.0-2.8); Alkaline Phosphatase 93 U/L (38-126); Aspartate Aminotransferase 25 IU/L (14-36); BUN Creatinine Ratio 19.7 (6-22); Bilirubin Total 0.6 mg/dL (0.2-1.3); Blood Urea Nitrogen 13 mg/dL (7-17); Calcium 9.6 mg/dL (8.4-10.2); Carbon Dioxide 24 mmol/L (22-32); Chloride 105 mmol/L (98-107); Estimated Glomerular Filt Rate > 60 mL/min (>60); Globulin 3.5 g/dL (1.7-4.1); Glucose 106 mg/dL (70-100); HEMOLYSIS < 15 (0-50); Lipase 95 U/L (23-300); Potassium 3.7 mmol/L (3.4-5.1); Sodium 138 mmol/L (137-145); Total Protein 7.7 g/dL (6.3-8.2)
[2024-07-30] MEDS: SODIUM CHLORIDE 0.9% FLUSH 50 ML IV (08:10)
[2024-07-30 09:01] VITALS: PULSE 75
[2024-07-30 09:02] VITALS: BP 136/73; PULSE 75; O2SAT 99
== END 2024-07-30 09:21 | disposition home or self-care (01) ==
PROVIDERS: Emergency Provider Emergency Medicine; Family Provider Student in an Organized Health Care Education/Training Program; PCP Student in an Organized Health Care Education/Training Program
DX: M62.830 Muscle spasm of back (principal); M54.6 Pain in thoracic spine; R07.9 Chest pain, unspecified; R06.00 Dyspnea, unspecified
CPT/HCPCS: 36415; 71275; 74177; 80053; 81001; 83690; 84703; 85025; 96374; 96375; 99284; J1171; J1885; J2405

== ENCOUNTER → 2024-12-01 17:24 | Outpatient (CLI) | payer MEDICARE, MEDICAID, SELFPAY ==
[2019-07-29 08:35] VITALS: BMI 40.6
--- NOTE | 2024-12-01 17:26 | DI.RAD.S_ITS ---
PROCEDURE: XR LUMBAR SPINE MIN 4V INDICATIONS: BACK PAIN TECHNIQUE: 5 views of the lumbar spine were acquired, including bilateral oblique views. COMPARISON: [facility], CT, CT ABDOMEN PELVIS W CON, 07/30/2024, 7:34. FINDINGS AND IMPRESSION: No acute vertebral body height loss or traumatic subluxation. No definite pars defects on oblique views. Minimal lower lumbar spondylosis. No suspicious soft tissue calcifications. Increased colonic fecal loading. If there is high concern for further derangement, consider MRI evaluation. Dictated by: Babatunde Alba M.D. on 12/01/2024 at 18:04 Approved by: Babatunde Alba M.D. on 12/01/2024 at 18:05
== END ==
LOC: RAD 17:26
PROVIDERS: Family Provider Student in an Organized Health Care Education/Training Program; PCP Student in an Organized Health Care Education/Training Program; Referring Provider Physical Medicine & Rehabilitation; Visit Provider Physical Medicine & Rehabilitation
DX: M54.6 Pain in thoracic spine (principal); G89.29 Other chronic pain
CPT/HCPCS: 72110

== ENCOUNTER → 2025-02-23 15:13 | Outpatient (CLI) | payer MEDICARE, MEDICAID, SELFPAY ==
[2019-07-29 08:35] VITALS: BMI 40.6
== END ==
PROVIDERS: Family Provider Student in an Organized Health Care Education/Training Program; PCP Student in an Organized Health Care Education/Training Program; Visit Provider Family Medicine
DX: J02.9 Acute pharyngitis, unspecified (principal)
CPT/HCPCS: 87070

== ENCOUNTER → 2025-02-23 15:31 | Outpatient (CLI) | payer MEDICARE, MEDICAID, SELFPAY ==
[2019-07-29 08:35] VITALS: BMI 40.6
[2025-02-23 17:37] LABS: Hep C Virus Ab w/Reflex Quant NEGATIVE s/c (NEGATIVE)
[2025-02-23 18:16] LABS: Urine N gonorrhoeae NOT DETECTED
[2025-02-23 18:30] LABS: Urine Chlamydia NOT DETECTED
== END ==
PROVIDERS: Family Provider Student in an Organized Health Care Education/Training Program; PCP Student in an Organized Health Care Education/Training Program; Referring Provider Family Medicine; Visit Provider Family Medicine
DX: Z72.51 High risk heterosexual behavior (principal)
CPT/HCPCS: 36415; 86592; 86803; 87070; 87491; 87535; 87538; 87591